=== PATIENT | male | born 1935 | race Caucasian/White ===

== ENCOUNTER 2017-01-18 11:59 | Inpatient (IN) | payer MEDICARE ==
[~2017-01-18] VITALS: Ht 185.4 cm; Wt 97.4 kg
[2017-01-18 12:01] VITALS: BP 144/74; PULSE 76; RESP 24; TEMP 97.4; O2SAT 95
--- NOTE | 2017-01-18 12:06 | PD ---
Data Data Last Documented VS Vital Signs Date Time Temp Pulse Resp B/P Pulse Ox O2 Delivery O2 Flow Rate FiO2 01/18/17 12:01 97.4 76 24 144/74 95 Room Air [facility] Supervised Visit with ALFIE: No Narrative Course 82 YO male with complaint of swelling in the right groin x 2 weeks. ? fevers. Cystoscopy with sanchez catheter placed in office today. Sent for admission by Anh/ Shantanu. Vitals reviewed. Awaiting bed placement. Sarahi Haas Jan 18, 2017 12:06
[2017-01-18 12:59] VITALS: BP 147/66; PULSE 76; RESP 20; TEMP 97.7; O2SAT 97
--- NOTE | 2017-01-18 13:48 | PD ---
HPI Chief Complaint: Complaint Time Seen by Provider: 13:00 Travel History International Travel<30 days: No Contact w/Intl Traveler<30days: No Traveled to known affect area: No History of Present Illness HPI This is an 82-year-old male who presents to the emergency department having had a Torres catheter put in via cystoscopy earlier today by Dr. Verdin also reporting scrotal swelling. Over the past week he's had increasing swelling of his right scrotum, constant, moderate severity with no associated fevers. Patient has a history of radiation for prostate cancer and has had a complicated urologic history since then. He had a suprapubic catheter which was leaking. Dr. Verdin saw him today and was concerned regarding the appearance of his scrotum and recommended that he be admitted for antibiotics. PFSH Past Medical History Cancer: Yes (hx of prostate cancer) Cardiovascular Problems: Yes (BYPASS 2002) High Cholesterol: Yes Deep Vein Thrombosis: Yes GERD: Yes Hypertension: Yes Radiation Therapy: Yes (after prostatectomy 2013) Influenza Vaccination: Yes Past Surgical History Cardiac Surgery: Yes (2002) Coronary Stent: Yes (2000) Eye Surgery: Yes (cataracts) Genitourinary Surgery: Yes (ams 800 inserted, ams removed, prostatectomy) Social History Alcohol Use: Yes (wine occasional) Tobacco Use: No Substance Use: No Allergies-Medications (Allergen,Severity, Reaction): Coded Allergies: Allopurinol (Verified Allergy, Severe, 01/18/17) ruined small instetine and esophagus Reported Meds & Prescriptions Reported Meds & Active Scripts Active Reported Zolpidem (Zolpidem Tartrate) 5 Mg Tab 5 Mg PO HS PRN Lipitor (Atorvastatin Calcium) 40 Mg Tab 40 Mg PO HS Omeprazole 20 Mg Tab 20 Mg PO DAILY Bactrim DS (Sulfamethoxazole-Trimethoprim) 800-160 Mg Tab 1 Tab PO BID Metoprolol Succinate ER 24 HR (Metoprolol Succinate) 100 Mg Tab 150 Mg PO DAILY Review of Systems Except as stated in HPI: all other systems reviewed are Neg Physical Exam Narrative GENERAL: Frail elderly male in no acute distress SKIN: Erythema and warmth of the right groin extending down to the right testicle HEAD: Atraumatic. Normocephalic. EYES: Pupils equal and round. No injection or drainage. ENT: Moist mucous membranes NECK: Trachea midline. CARDIOVASCULAR: Regular rate and rhythm. No murmur appreciated. RESPIRATORY: Clear to auscultation. Breath sounds equal bilaterally. GASTROINTESTINAL: Abdomen soft, non-tender, nondistended. : Erythema and fullness of the right groin area extending down into the scrotum with tenseness of the right scrotum, left scrotum is soft MUSCULOSKELETAL: No obvious deformities. NEUROLOGICAL: Awake and alert. No obvious cranial nerve deficits. Moving all extremities. PSYCHIATRIC: Appropriate mood and affect; insight and judgment normal. Data Data Last Documented VS Vital Signs Date Time Temp Pulse Resp B/P Pulse Ox O2 Delivery O2 Flow Rate FiO2 01/18/17 12:59 97.7 76 20 147/66 97 01/18/17 12:01 Room Air Orders Complete Blood Count With Diff (01/18/17 13:00) Comprehensive Metabolic Panel (01/18/17 13:00) Urinalysis - C+S If Indicated (01/18/17 13:00) ^ Insert Iv (01/18/17 13:00) Urine Culture (01/18/17 13:20) Lactic Acid (01/18/17 14:25) Sodium Chlor 0.9% 1000 Ml Inj (Ns 1000 M (01/18/17 14:30) Vancomycin Inj (Vancomycin Inj) (01/18/17 14:30) Cefepime Inj (Maxipime Inj) (01/18/17 14:30) Ct Abd/Pel W Iv Contrast(Rout) (01/18/17 ) Admit Order (Ed Use Only) (01/18/17 15:05) Labs Laboratory Tests Test 01/18/17 01/18/17 13:20 14:55 White Blood Count 14.6 TH/MM3 Red Blood Count 4.68 MIL/MM3 Hemoglobin 13.7 GM/DL Hematocrit 41.2 % Mean Corpuscular Volume 87.9 FL Mean Corpuscular Hemoglobin 29.3 PG Mean Corpuscular Hemoglobin 33.4 % Concent Red Cell Distribution Width 14.7 % Platelet Count 357 TH/MM3 Mean Platelet Volume 6.9 FL Neutrophils (%) (Auto) 74.2 % Lymphocytes (%) (Auto) 11.5 % Monocytes (%) (Auto) 13.1 % Eosinophils (%) (Auto) 0.6 % Basophils (%) (Auto) 0.6 % Neutrophils # (Auto) 10.9 TH/MM3 Lymphocytes # (Auto) 1.7 TH/MM3 Monocytes # (Auto) 1.9 TH/MM3 Eosinophils # (Auto) 0.1 TH/MM3 Basophils # (Auto) 0.1 TH/MM3 CBC Comment DIFF FINAL Differential Comment Urine Color YELLOW Urine Turbidity CLOUDY Urine pH 6.0 Urine Specific [place] 1.028 Urine Protein 300 mg/dL Urine Glucose (UA) NEG mg/dL Urine Ketones NEG mg/dL Urine Occult Blood LARGE Urine Nitrite POS Urine Bilirubin NEG Urine Urobilinogen LESS THAN 2.0 MG/DL Urine Leukocyte Esterase LARGE Urine RBC /hpf Urine WBC /hpf Urine Squamous Epithelial 1 /hpf Cells Urine Uric Acid Crystals OCC /hpf Urine Amorphous Sediment RARE Urine Bacteria MANY /hpf Urine Mucus MANY /lpf Urine Yeast with Hyphae FEW Urine Yeast (Budding) MANY Microscopic Urinalysis Comment CATH-CULTURE IND Sodium Level 132 MEQ/L Potassium Level 4.0 MEQ/L Chloride Level 98 MEQ/L Carbon Dioxide Level 27.0 MEQ/L Anion Gap 7 MEQ/L Blood Urea Nitrogen 16 MG/DL Creatinine 1.22 MG/DL Estimat Glomerular Filtration 57 ML/MIN Rate Random Glucose 124 MG/DL Calcium Level 9.3 MG/DL Total Bilirubin 0.5 MG/DL Aspartate Amino Transf 32 U/L (AST/SGOT) Alanine Aminotransferase 66 U/L (ALT/SGPT) Alkaline Phosphatase 185 U/L Total Protein 7.6 GM/DL Albumin 3.0 GM/DL Lactic Acid Level 1.2 mmol/L [facility] Medical Decision Making Medical Screen Exam Complete: Yes Emergency Medical Condition: Yes Interpretation(s) Afebrile, no tachycardia, hypertensive Leukocytosis with 74% neutrophils Electrolytes are reassuring Lactic acid is 1.2 Urinalysis demonstrates urinary tract infection but he is likely chronically colonized Differential Diagnosis Abscess, hematoma, sepsis, inguinal hernia Narrative Course This is an 82-year-old male who presents to the emergency department with increasing swelling and pain over an area where he previously had a urinary syncope or prosthesis. He was placed on a monitor and an IV was established. He is found to have a leukocytosis. He was given a dose of vancomycin and cefepime. CT of the abdomen and pelvis was obtained and it is consistent with a likely scrotal abscess. I spoke to Dr. Kamara who would like to maintain the patient on IV antibiotics as well as surgical intervention will likely be complicated and will require the OR for hardware removal. Patient will be admitted to the hospital for further management. Diagnosis Primary Impression: Scrotal abscess Admitting Information Admitting Physician Requests: Admit Haylee Franks MD Jan 18, 2017 13:48
[2017-01-18 13:56] LABS: AUTOMATED NEUTROPHIL # 10.9 TH/MM3 (1.8-7.7); BASOPHIL # 0.1 TH/MM3 (0-0.2); BASOPHIL % 0.6 % (0.0-2.0); EOSINOPHIL # 0.1 TH/MM3 (0-0.4); EOSINOPHIL % 0.6 % (0.0-4.0); HEMATOCRIT 41.2 % (39.0-51.0); HEMO FLAGS DIFF FINAL; LYMPH % 11.5 % (9.0-44.0); LYMPHOCYTE # 1.7 TH/MM3 (1.0-4.8); MEAN CELL VOLUME 87.9 FL (80.0-100.0); MEAN CORPUSCULAR HEMOGLOBIN 29.3 PG (27.0-34.0); MEAN CORPUSCULAR HGB CONC 33.4 % (32.0-36.0); MONO % 13.1 % (0.0-8.0); NEUT % 74.2 % (16.0-70.0); PLATELET COUNT 357 TH/MM3 (150-450); RED BLOOD COUNT 4.68 MIL/MM3 (4.50-5.90); RED CELL DISTRIBUTION WIDTH 14.7 % (11.6-17.2); WHITE BLOOD COUNT 14.6 TH/MM3 (4.0-11.0)
[2017-01-18 14:08] LABS: BACTERIA, URINE MANY /hpf; BLOOD, URINE LARGE (NEG); GLUCOSE,URINE NEG (NEG); KETONE, URINE NEG (NEG); MUCUS URINE MANY /lpf (OCC); SQUAMOUS EPITHELIAL CELL URINE 1 /hpf (0-5); URIC ACID CRYSTALS, URINE OCC /hpf; URINE COLOR YELLOW (YELLW/STRAW)
[2017-01-18 14:10] LABS: COMMENT (UR) CATH-CULTURE IND; CULTURE IF INDICATED CATH CULTURE IND; NITRITE,URINE POS (NEG)
[2017-01-18 14:15] LABS: ANION GAP 7 MEQ/L (5-15); AST (GOT) 32 U/L (15-37); BLOOD UREA NITROGEN 16 MG/DL (7-18); CHLORIDE 98 MEQ/L (98-107); GLOMERULAR FILTRATION RATE 57 ML/MIN (>89); SODIUM (NA) 132 MEQ/L (136-145)
[2017-01-18 14:22] LABS: ALKALINE PHOSPHATASE 185 U/L (45-117); ALT (GPT) 66 U/L (12-78); TOTAL BILIRUBIN ADULT 0.5 MG/DL (0.2-1.0)
[2017-01-18] MEDS ORDERED: LIPI40TA PO (14:23)
[2017-01-18] MEDS ORDERED: BACT800T5 PO (14:23)
[2017-01-18] MEDS ORDERED: ZOLP5TAB3 PO (14:23)
[2017-01-18] MEDS ORDERED: METO100T9 PO (14:23)
[2017-01-18] MEDS ORDERED: OMEP20TA PO (14:23)
[2017-01-18] MEDS ORDERED: CEFEPIME INJ 2,000 MG in SODIUM CHLORIDE 0.9% INJ 100 ML IV ONE (14:30)
[2017-01-18] MEDS ORDERED: SODIUM CHLOR 0.9% 1000 ML INJ 1,000 ML IV ONE (14:30)
[2017-01-18] MEDS ORDERED: VANCOMYCIN INJ 1,400 MG in SODIUM CHLORID 0.9% 500 ML INJ 500 ML IV ONE (14:30)
--- NOTE | 2017-01-18 14:51 | HHI.HP ---
[facility] Service Family Medicine Primary Care Physician Sabino Muniz M.D. Admission Diagnosis Diagnoses: International Travel<30 Days: No Contact w/Intl Traveler<30days: No Known Affected Area: No History of Present Illness Mr. Cheng is a pleasant 82 y/o CM, presenting with increased scrotal swelling, redness and subjective fevers. He reports having a prostatectomy in 2013 for Prostate CA. Since this time having urinary retention and had recurrent prostate resection performed. A suprapubic catheter was placed in 2013 and is changed every month. In [address] Leyva, when AMS 800 (artificial sphincter) was placed. This worked for approximately 10 days, and then after that it was not working very well. He was still having urinary retention even with the device. On January 03, 2017 the device was removed. A week after this time his right testicle became red and swollen. On January 11 starting leaking urine from his scrotum. He is now having to wear depends underwear for leakage of urine for the past week. He reports subjective fevers last night. Has been taking Bactrim everyday since removal of the artificial sphincter. Today he went for a follow up visit with urology and they urged him to be evaluated in the ED given the increased redness swelling and possibility of abscess/hematoma. A Torres was placed at that visit. (Johnie Segal MD R2) Review of Systems Constitutional: COMPLAINS OF: Fever, Chills Eyes: DENIES: Eye pain Ears, nose, mouth, throat: COMPLAINS OF: Nasal discharge Respiratory: COMPLAINS OF: Cough, DENIES: Shortness of breath Cardiovascular: DENIES: Chest pain, Palpitations Gastrointestinal: COMPLAINS OF: Diarrhea (sticky glue), DENIES: Abdominal pain , Black stools, Bloody stools Genitourinary: COMPLAINS OF: Testicular Pain, Testicular Swelling Integumentary: COMPLAINS OF: Rash Neurologic: DENIES: Headache Psychiatric: COMPLAINS OF: Confusion (Johnie Segal MD R2) Past Family Social History Past Medical History [place] 2000 with stent, CABG in 2002 No DM HTN No strokes Prostate Cancer Deep vein thrombosis (Left leg and groin veins) Past Surgical History Right knee replacement CABG x 3 vessels Cardiac Stents TURP Prostate surgeries as above (Johnie Segal MD R2) Allergies: Coded Allergies: Allopurinol (Verified Allergy, Severe, 01/18/17) ruined small instetine and esophagus Family History Non contributory. Mom with CAD. Social History No etoh, tob, or drug use. 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 Moved to [facility] recently from [place]. (Johnie Segal MD R2) Physical Exam Vital Signs Vital Signs Date Time Temp Pulse Resp B/P Pulse Ox O2 Delivery O2 Flow Rate FiO2 01/18/17 12:59 97.7 76 20 147/66 97 01/18/17 12:01 97.4 76 24 144/74 95 Room Air Physical Exam GENERAL: Crying throughout exam, appears uncomfortable but in NAD. SKIN: scar over anterior chest HEAD: Atraumatic. EYES: Pupils equal round and reactive. ENT: Nose without bleeding, purulent drainage or septal hematoma. NECK: Trachea midline. CARDIOVASCULAR: Regular rate and rhythm without murmurs, gallops, or rubs. Distant heart sounds. RESPIRATORY: Clear to auscultation. GASTROINTESTINAL: TTP over lower quadrants. MUSCULOSKELETAL: Extremities without clubbing, cyanosis, or edema. No joint tenderness, effusion, or edema noted. No calf tenderness. Negative Homans sign bilaterally. NEUROLOGICAL: Awake and alert. Cranial nerves II through XII intact. Motor and sensory grossly within normal limits. Five out of 5 muscle strength in all muscle groups. Normal speech. GENITOURINARY: Suprapubic catheter with thick green/yellow discharge around catheter, Right testes enlarged approximately 8-10 cm round, indurated, not fluctuant, no crepitus. Erythema throughout scrotum. Torres catheter with yellow purulent discharge. Laboratory Laboratory Tests Test 01/18/17 13:20 White Blood Count 14.6 Red Blood Count 4.68 Hemoglobin 13.7 Hematocrit 41.2 Mean Corpuscular Volume 87.9 Mean Corpuscular Hemoglobin 29.3 Mean Corpuscular Hemoglobin 33.4 Concent Red Cell Distribution Width 14.7 Platelet Count 357 Mean Platelet Volume 6.9 Neutrophils (%) (Auto) 74.2 Lymphocytes (%) (Auto) 11.5 Monocytes (%) (Auto) 13.1 Eosinophils (%) (Auto) 0.6 Basophils (%) (Auto) 0.6 Neutrophils # (Auto) 10.9 Lymphocytes # (Auto) 1.7 Monocytes # (Auto) 1.9 Eosinophils # (Auto) 0.1 Basophils # (Auto) 0.1 CBC Comment DIFF FINAL Differential Comment Urine Color YELLOW Urine Turbidity CLOUDY Urine pH 6.0 Urine Specific [place] 1.028 Urine Protein 300 Urine Glucose (UA) NEG Urine Ketones NEG Urine Occult Blood LARGE Urine Nitrite POS Urine Bilirubin NEG Urine Urobilinogen LESS THAN 2.0 Urine Leukocyte Esterase LARGE Urine RBC Urine WBC Urine Squamous Epithelial 1 Cells Urine Uric Acid Crystals OCC Urine Amorphous Sediment RARE Urine Bacteria MANY Urine Mucus MANY Urine Yeast with Hyphae FEW Urine Yeast (Budding) MANY Microscopic Urinalysis Comment CATH-CULTURE IND Sodium Level 132 Potassium Level 4.0 Chloride Level 98 Carbon Dioxide Level 27.0 Anion Gap 7 Blood Urea Nitrogen 16 Creatinine 1.22 Estimat Glomerular Filtration 57 Rate Random Glucose 124 Calcium Level 9.3 Total Bilirubin 0.5 Aspartate Amino Transf 32 (AST/SGOT) Alanine Aminotransferase 66 (ALT/SGPT) Alkaline Phosphatase 185 Total Protein 7.6 Albumin 3.0 Date/Time Procedure Status Source Growth 01/18/17 13:20 Urine Culture Received Urine Catheterized Urine Pending (Johnie Segal MD R2) Result Diagram: 01/18/17 1320 01/18/17 1320 Imaging Last 72 hours Impressions Abdomen/Pelvis CT 01/18/17 0000 Signed Impressions: Service Date/Time: Wednesday, January 18, 2017 15:33 - CONCLUSION: 1. Presumed inflammatory process in and around the right scrotum that does not extend into the perineum. 2. There would be a small hernia sac present. There is induration extending along and into the inguinal canal. 3. Patient does have what looks like a catheter within the urethra that does not extend into the bladder. Geovanny Hopkins MD FACR (Johnie Segal MD R2) Septic Shock Reassessment Heart: Regular rate and rhythm Lungs: Clear Skin: Warm Peripheral Pulses: Bounding Right Radial Bounding Left Radial Capillary Refill: <2 seconds (Johnie Segal MD R2) Assessment and Plan Assessment and Plan Mr. Nolan is a 82-year-old male with a past medical history of coronary artery disease, prostate cancer status post resection in 2013, artificial urethral sphincter placement, urinary incontinence, and hypertension , presenting with increased scrotal swelling and redness x 2 weeks. He will be admitted for pain control and IV antibiotics. Code Status Full Code. (Johnie Segal MD R2) Attending Attestation The patient has been seen and examined. The chart and all resident notes have been reviewed. I agree that inpatient care is appropriate and that a two midnight stay is expected for the reasons documented in the resident history and physical. I have discussed this with the resident and certify the resident s order for inpatient admission. All systems reviewed and neg except as stated in HPI. (Toya Quan MD) Problem List: (1) Sepsis Status: Acute Plan: RR > 20, WBCs at 14.4 k, with suspected source = Urinary tract, scrotum. Lactic acid WNL. Treat with broad spectrum antibiotics: Zosyn 3.375 mg IV q 6 hrs, started 01/18 - Vancomycin 15 mg/kg q 12 hr (Vancomycin consult), started 01/18 - Received 1 L bolus in ED, continue NS at 100 ml/hr. Vitals at goal. Follow up urine and blood cultures. May consider infectious disease consult. (2) Swelling of scrotum Status: Acute Plan: CT abd/pelvis with contrast noted: "Presumed inflammatory process in and around the right scrotum that does not extend into the perineum. There would be a small hernia sac present. There is induration extending along and into the inguinal canal." Suspect scrotal cellulitis/abscess. Tess gangrene unlikely given physical exam and no extension of inflammatory process into the perineum on CT. Pain control with: Ketoralac 30 mg IV q 6 hr prn pain 1-5 Morphine 2 mg IV q q 4 hr prn pain 6-10 Hydromorphone 0.5 mg q 3 hr breakthrough pain Consult urology. We appreciate their assistance. (3) Hyperlipidemia Status: Acute Plan: Continue statin therapy. (4) CAD (coronary artery disease) Status: Acute Plan: BP control with home medications including Beta bev (Metoprolol 150 mg ER daily). Hold antiplatelet therapy given the possible need for surgical procedure. Lipid control as above. (5) Nutrition, metabolism, and development symptoms Status: Acute Plan: Nutrition: Nothing by mouth until evaluated by urology. Electrolytes: at goal except for sodium of 132, repeat BMP in am DVT ppx: SCDs given high risk of bleeding. wdw Dr. Quan (Johnie Segal MD R2) Physician Certification 2 Midnight Certification Type: Admission for Inpatient Services Order for Inpatient Services The services are ordered in accordance with Medicare regulations or non- Medicare payer requirements, as applicable. In the case of services not specified as inpatient-only, they are appropriately provided as inpatient services in accordance with the 2-midnight benchmark. Estimated LOS (days): 2 2 days is the estimated time the patient will need to remain in the hospital, assuming treatment plan goals are met and no additional complications. Post-Hospital Plan: Home (Johnie Segal MD R2) Johnie Segal MD R2 Jan 18, 2017 14:51 Toya Quan MD Jan 19, 2017 14:32
[2017-01-18] MEDS ORDERED: SODIUM CHLORIDE 0.9% FLUSH 10 ML FLUSH IV FLUSH PRN ×2 (15:30)
[2017-01-18] MEDS ORDERED: HYDROmorphone HCL PF 1 MG/ML VIAL IV PRN (15:30)
[2017-01-18] MEDS ORDERED: NALOXONE HCL 0.4 MG/ML AMP IV PRN (15:30)
[2017-01-18] MEDS ORDERED: MORPHINE SULFATE 4 MG/ML INJ IV PRN (15:30)
[2017-01-18] MEDS ORDERED: KETOROLAC TROMETHAMINE 30 MG/ML (IVP) VIAL IVP PRN (15:30)
[2017-01-18] MEDS ORDERED: ONDANSETRON HCL 4 MG/2 ML VIAL IVP PRN (15:30)
[2017-01-18] MEDS ORDERED: IOHEXOL 350 MG/ML 10 ML VIAL (for RAD DIAG) IV ONE (15:49)
[2017-01-18 15:50] VITALS: BP 163/72; PULSE 75; RESP 15; TEMP 98.2; O2SAT 98
--- NOTE | 2017-01-18 16:12 | RADRPT ---
EXAM DATE/TIME: 01/18/2017 15:33 [place] COMPARISON: No previous studies available for comparison. INDICATIONS : Scrotal pain for 2 weeks. IV CONTRAST: 93 cc Omnipaque 350 (iohexol) IV ORAL CONTRAST: No oral contrast ingested. RADIATION DOSE: 11.91 CTDIvol (mGy) MEDICAL HISTORY : Carcinoma, prostate. SURGICAL HISTORY : Prostatectomy. suprapubic cath. ENCOUNTER: Initial ACUITY: 2 weeks PAIN SCALE: 6/10 LOCATION: Right scrotum. TECHNIQUE: Volumetric scanning of the abdomen and pelvis was performed. Using automated exposure control and ad justment of the mA and/or kV according to patient size, radiation dose was kept as low as reasonably achievable to obtain optimal diagnostic quality images. FINDINGS: The lung bases are clear. There is no pericardial effusion. The liver is free of focal defects. Mu ltiple gallstones are present in a benign-appearing gallbladder. Spleen, pancreas and adrenal glands are unremarkable. There is symmetrical renal function. There is no ascites or adenopathy appreciated. In the pelvis, the region of the cecum and terminal ileum are unremarkable. There are diverticula in the sigmoid colon without diverticulitis. Patient does have a suprapubic ca theter in place. There is a large hydrocele about the right testicle. In addition, there is inguinal hernia present. I don't see any definite bowel in the hernia. Clinical correlation is suggested. There are minimal inflammatory changes around the scrotum, particularly on the right side suggesting possibly an orchitis or other inflammatory process. This does not extend into the perineum. CONCLUSION: 1. Presumed inflammatory process in and around the right scrotum that does not extend into the perin eum. 2. There would be a small hernia sac present. There is induration extending along and into the ingu inal canal. 3. Patient does have what looks like a catheter within the urethra that does not extend into the eric dder. Geovanny Hopkins MD FACR on January 18, 2017 at 15:56 Board Certified Radiologist. This report was verified electronically.
[2017-01-18] MEDS ORDERED: FUROSEMIDE 20 MG/2 ML VIAL IV ONE (16:15)
[2017-01-18 16:20] LABS: APTT (PATIENT) 30.6 SEC (24.3-30.1); INTERNATIONAL NORMALIZED RATIO 1.1 RATIO; PROTHROMBIN TIME - PATIENT 11.7 SEC (9.8-11.6)
[2017-01-18] MEDS: SODIUM CHLOR 0.9% 1000 ML INJ 1,000 ML IV SCH ×2 (16:44→21:26)
[2017-01-18] MEDS: DOCUSATE SODIUM 50 MG/SENNA 8.6 MG TAB PO SCH ×2 (16:44→21:21)
[2017-01-18] MEDS ORDERED: Vancomycin Consult Pharmacy 1 EA OTHER SCH (16:45)
[2017-01-18 17:20] VITALS: BP 167/76; PULSE 75; RESP 20; TEMP 98.5; O2SAT 96
[2017-01-18] MEDS: PIPERACIL-TAZO 3.375 GM PREMIX 50 ML IV SCH ×2 (18:31→23:07)
[2017-01-18] MEDS ORDERED: cloNIDine HCL 0.1 MG TAB PO PRN (19:30)
[2017-01-18] MEDS ORDERED: MORPHINE SULFATE 4 MG/ML INJ IV PUSH PRN (20:00)
[2017-01-18 20:01] VITALS: PULSE 70
[2017-01-18 20:02] VITALS: BP 138/63; PULSE 68; RESP 20; TEMP 98.7; O2SAT 96
[2017-01-18] MEDS ORDERED: SODIUM CHLORIDE 0.9% FLUSH 10 ML FLUSH IV FLUSH SCH (21:00)
--- NOTE | 2017-01-18 21:18 | PD.CONS ---
HPI Service Urology Consult Requested By Reason for Consult Infection Primary Care Physician Sabino Muniz M.D. Diagnosis: History of Present Illness 82yo male with history of prostate cancer who had an AUS placed that was subsequently removed last month now with increased erythema and swelling noted in the right testicle and hemiscrotum and groin. Patient was seen in clinic this morning where a sanchez catheter was successfully placed. An SPT had been placed prior, but did not appear to be adequately draining. Currently both catheter are in place draining clear urine. Patient is resting comfortably and reports some mild right groin pain. No fevers. CT scan showed large fluid collection in the right groin, concerning for abscess vs hematoma vs urinoma. Review of Systems ROS Limitations: Clinical Condition Constitutional: DENIES: Fever Endocrine: DENIES: Polyuria Eyes: DENIES: Blurred vision Ears, nose, mouth, throat: DENIES: Hearing loss Respiratory: DENIES: Cough Cardiovascular: DENIES: Chest pain Gastrointestinal: COMPLAINS OF: Abdominal pain, DENIES: Nausea, Vomiting Genitourinary: COMPLAINS OF: Urinary incontinence, DENIES: Hematuria Musculoskeletal: DENIES: Joint pain Integumentary: DENIES: Rash Neurologic: DENIES: Headache Psychiatric: DENIES: Anxiety Except as stated in HPI: all other systems reviewed are Neg Past Family Social History Past Medical History [place] 2000 with stent, CABG in 2002 No DM HTN No strokes Prostate Cancer Deep vein thrombosis (Left leg and groin veins) Past Surgical History Right knee replacement CABG x 3 vessels Cardiac Stents TURP Prostate surgeries as above Reported Medications Reported Meds & Active Scripts Active Reported Zolpidem (Zolpidem Tartrate) 5 Mg Tab 5 Mg PO HS PRN Lipitor (Atorvastatin Calcium) 40 Mg Tab 40 Mg PO HS Omeprazole 20 Mg Tab 20 Mg PO DAILY Bactrim DS (Sulfamethoxazole-Trimethoprim) 800-160 Mg Tab 1 Tab PO BID Metoprolol Succinate ER 24 HR (Metoprolol Succinate) 100 Mg Tab 150 Mg PO DAILY Allergies: Coded Allergies: Allopurinol (Verified Allergy, Severe, 01/18/17) ruined small instetine and esophagus Active Ordered Medications Current Medications Medications (Trade) Dose Ordered Sig/Kena Route Start Time Stop Time Status Last Admin (Lipitor) 40 mg HS PO 01/18/17 21:00 Metoprolol Succinate 150 mg 150 mg DAILY PO 01/19/17 09:00 (NS 1000 ml Inj) 1,000 ml @ 100 mls/hr Q10H IV 01/18/17 16:00 01/18/17 16:44 (Zofran Inj) 4 mg Q6H PRN IVP 01/18/17 15:30 (Narcan Inj) 0.4 mg UNSCH PRN IV 01/18/17 15:30 (Rufina-Colace) 1 tab BID PO 01/18/17 15:30 01/18/17 16:44 (NS Flush) 2 ml UNSCH PRN IV FLUSH 01/18/17 15:30 (NS Flush) 2 ml BID IV FLUSH 01/18/17 21:00 (Toradol Inj) 30 mg Q6H PRN IVP 01/18/17 15:30 (Dilaudid Pf Inj) 0.5 mg Q3H PRN IV 01/18/17 15:30 Psyllium Hydrophilic Mucilloid 1 pkt 1 pkt DAILY PO 01/19/17 09:00 Piperacillin Sod/ Tazobactam Sod 50 ml @ 100 mls/hr Q6H IV 01/18/17 17:00 01/18/17 18:31 (Vancomycin Consult Pharmacy) 0 ml @ 0 mls/hr UNSCH OTHER 01/18/17 16:45 (Catapres) 0.1 mg Q6H PRN PO 01/18/17 19:30 (Morphine Inj) 2 mg Q3H PRN IV PUSH 01/18/17 20:00 Family History Reviewed and Non contributory to present illness Mom with CAD. Social History No etoh, tob, or drug use. 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 Moved to [facility] recently from [place]. Physical Exam Vital Signs Date Time Temp Pulse Resp B/P Pulse Ox O2 Delivery O2 Flow Rate FiO2 01/18/17 20:02 98.7 68 20 138/63 96 01/18/17 17:20 98.5 75 20 167/76 96 01/18/17 15:50 98.2 75 15 163/72 98 Room Air 01/18/17 12:59 97.7 76 20 147/66 97 01/18/17 12:01 97.4 76 24 144/74 95 Room Air Physical Exam GENERAL: This is a well-nourished, well-developed patient, in no apparent distress. SKIN: No rashes, ecchymoses or lesions. Cool and dry. HEAD: Atraumatic. Normocephalic. EYES: Extraocular motions intact. No scleral icterus. ENT: Nose without bleeding, purulent drainage. Airway patent. NECK: Trachea midline. CARDIOVASCULAR: Normal pulses. well perfused. RESPIRATORY: Nonlabored respirations, equal chest rise GASTROINTESTINAL: Abdomen soft, non-tender, nondistended. SPT in place draining clear yellow urine GENITOURINARY: Significant erythema and swelling noted in the right groin and scrotum. Tender to palpation. Urethral catheter in place, draining clear yellow urine. MUSCULOSKELETAL: Extremities without clubbing, cyanosis, or edema. NEUROLOGICAL: Awake and alert. Motor and sensory grossly within normal limits. Normal speech. Lab results reviewed: Yes Laboratory Tests Test 01/18/17 01/18/17 01/18/17 13:20 14:55 15:50 White Blood Count 14.6 Red Blood Count 4.68 Hemoglobin 13.7 Hematocrit 41.2 Mean Corpuscular Volume 87.9 Mean Corpuscular Hemoglobin 29.3 Mean Corpuscular Hemoglobin 33.4 Concent Red Cell Distribution Width 14.7 Platelet Count 357 Mean Platelet Volume 6.9 Neutrophils (%) (Auto) 74.2 Lymphocytes (%) (Auto) 11.5 Monocytes (%) (Auto) 13.1 Eosinophils (%) (Auto) 0.6 Basophils (%) (Auto) 0.6 Neutrophils # (Auto) 10.9 Lymphocytes # (Auto) 1.7 Monocytes # (Auto) 1.9 Eosinophils # (Auto) 0.1 Basophils # (Auto) 0.1 CBC Comment DIFF FINAL Differential Comment Urine Color YELLOW Urine Turbidity CLOUDY Urine pH 6.0 Urine Specific [place] 1.028 Urine Protein 300 Urine Glucose (UA) NEG Urine Ketones NEG Urine Occult Blood LARGE Urine Nitrite POS Urine Bilirubin NEG Urine Urobilinogen LESS THAN 2.0 Urine Leukocyte Esterase LARGE Urine RBC Urine WBC Urine Squamous Epithelial 1 Cells Urine Uric Acid Crystals OCC Urine Amorphous Sediment RARE Urine Bacteria MANY Urine Mucus MANY Urine Yeast with Hyphae FEW Urine Yeast (Budding) MANY Microscopic Urinalysis Comment CATH-CULTURE IND Sodium Level 132 Potassium Level 4.0 Chloride Level 98 Carbon Dioxide Level 27.0 Anion Gap 7 Blood Urea Nitrogen 16 Creatinine 1.22 Estimat Glomerular Filtration 57 Rate Random Glucose 124 Calcium Level 9.3 Total Bilirubin 0.5 Aspartate Amino Transf 32 (AST/SGOT) Alanine Aminotransferase 66 (ALT/SGPT) Alkaline Phosphatase 185 Total Protein 7.6 Albumin 3.0 Lactic Acid Level 1.2 Prothrombin Time 11.7 Prothromb Time International 1.1 Ratio Activated Partial 30.6 Thromboplast Time Date/Time Procedure Status Source Growth 01/18/17 15:55 Aerobic Blood Culture Received Blood Arterial Line Pending 01/18/17 15:55 Anaerobic Blood Culture Received Blood Arterial Line Pending 01/18/17 13:20 Urine Culture Received Urine Catheterized Urine Pending Result Diagram: 01/18/17 1320 01/18/17 1320 Personally reviewed images: Yes Imaging Last Impressions Abdomen/Pelvis CT 01/18/17 0000 Signed Impressions: Service Date/Time: Wednesday, January 18, 2017 15:33 - CONCLUSION: 1. Presumed inflammatory process in and around the right scrotum that does not extend into the perineum. 2. There would be a small hernia sac present. There is induration extending along and into the inguinal canal. 3. Patient does have what looks like a catheter within the urethra that does not extend into the bladder. Geovanny Hopkins MD FACR Assessment and Plan Problem List: (1) Swelling of scrotum ICD Code: N50.89 Status: Acute Assessment and Plan -Continue broad spectrum antibiotics -Will continue to follow WBC -Consider Scrotal U/S to assess testicle -Regular diet, no planned surgery at this time. However he may need I&D/ debridement if condition worsens or does not improve -Will follow. Please call with questions Kang Kamara MD Jan 18, 2017 21:18
[2017-01-18] MEDS: SODIUM CHLORIDE 0.9% FLUSH 10 ML FLUSH IV FLUSH SCH (21:21)
[2017-01-18] MEDS: ATORVASTATIN 40 MG TAB PO SCH (21:21)
[2017-01-19] VITALS (8 sets, daily range): BP systolic 114–143; BP diastolic 58–65; PULSE 60–72; RESP 18–20; TEMP 98.1–98.9; O2SAT 95–96
[2017-01-19] MEDS ORDERED: VANCOMYCIN INJ 1,400 MG in SODIUM CHLORID 0.9% 500 ML INJ 500 ML IV SCH (02:30)
[2017-01-19] MEDS: PIPERACIL-TAZO 3.375 GM PREMIX 50 ML IV SCH ×4 (05:38→23:35)
[2017-01-19] MEDS: SODIUM CHLORIDE 0.9% FLUSH 10 ML FLUSH IV FLUSH SCH ×2 (08:39→20:12)
[2017-01-19] MEDS: DOCUSATE SODIUM 50 MG/SENNA 8.6 MG TAB PO SCH ×2 (08:39→20:24)
[2017-01-19] MEDS: METOPROLOL SUCCINATE 50 MG EXTENDED RELEASE TAB PO SCH (08:39)
[2017-01-19] MEDS: PSYLLIUM FIBER SF/GF 6 GM POWD PKT PO SCH (08:42)
[2017-01-19] MEDS ORDERED: DIPHTH/TETANUS/ACEL PERTUSSIS (BOOSTER) 0.5 ML VIAL/PFS IM ONE (09:00)
[2017-01-19 09:25] LABS: AUTOMATED NEUTROPHIL # 7.7 TH/MM3 (1.8-7.7); BASOPHIL # 0.1 TH/MM3 (0-0.2); BASOPHIL % 0.6 % (0.0-2.0); EOSINOPHIL # 0.1 TH/MM3 (0-0.4); EOSINOPHIL % 1.2 % (0.0-4.0); HEMATOCRIT 36.5 % (39.0-51.0); HEMO FLAGS DIFF FINAL; LYMPH % 14.4 % (9.0-44.0); LYMPHOCYTE # 1.6 TH/MM3 (1.0-4.8); MEAN CORPUSCULAR HEMOGLOBIN 28.3 PG (27.0-34.0); MEAN CORPUSCULAR HGB CONC 31.8 % (32.0-36.0); MONO % 15.5 % (0.0-8.0); NEUT % 68.3 % (16.0-70.0); PLATELET COUNT 308 TH/MM3 (150-450); RED BLOOD COUNT 4.11 MIL/MM3 (4.50-5.90); RED CELL DISTRIBUTION WIDTH 14.6 % (11.6-17.2); WHITE BLOOD COUNT 11.2 TH/MM3 (4.0-11.0)
[2017-01-19 09:45] LABS: BICARBONATE 22.6 MEQ/L (21.0-32.0); POTASSIUM 3.8 MEQ/L (3.5-5.1)
[2017-01-19] MEDS: SODIUM CHLOR 0.9% 1000 ML INJ 1,000 ML IV SCH ×2 (10:28→22:00)
--- NOTE | 2017-01-19 11:37 | RADRPT ---
EXAM DATE/TIME: 01/19/2017 09:28 [facility] COMPARISON: CT ABDOMEN & PELVIS W CONTRAST, January 18, 2017, 15:33. INDICATIONS : Enlarged right testicle. MEDICAL HISTORY : Carcinoma, prostate. Hypercholesterolemia. DVT. Abdominal pain. GERD. HTN. SURGICAL HISTORY : CABG Coronary artery stent.Cataracts. AMS 800 inserted and removed. Prostatectomy. Left knee. Radiati on therapy. ENCOUNTER: Initial ACUITY: 1 month PAIN SCORE: 7/10 LOCATION: Bilateral scrotum. MEASUREMENTS: RIGHT TESTICLE: 3.4 x 2.9 x 2.9cm LEFT TESTICLE: 4.2 x 2.8 x 2.1cm FINDINGS: RIGHT TESTICLE: There is no flow in the right testicle. Extensive debris is present in the scrotum with marked thick ening of the scrotal sac. There may be small inguinal component of this as well. LEFT TESTICLE: Homogeneous echotexture without intra or extratesticular mass. Blood flow is symmetric and within no rmal limits. No hydrocele or varicocele. Epididymis is within normal limits. SCROTUM: Within normal limits. CONCLUSION: There is no blood flow in the right testicle. Extensive debris and scrotal thickening are present [facility] sp[facility] for an abscess as questioned by CT. There is normal flow to left testicle. Geovanny Hopkins MD FACR on January 19, 2017 at 11:33 Board Certified Radiologist. This report was verified electronically.
--- NOTE | 2017-01-19 11:50 | RADRPT ---
EXAM DATE/TIME: 01/19/2017 11:00 [facility] COMPARISON: No previous studies available for comparison. INDICATIONS : Right sided chest discomfort. Fall three weeks ago. Pain since then. MEDICAL HISTORY : Hypertension. Hypercholesterolemia. Gastroesophageal reflux disease. Prosta te cancer. SURGICAL HISTORY : CABG. Coronary stent. ENCOUNTER: Initial ACUITY: 3 weeks PAIN SCORE: 3/10 LOCATION: Right chest. FINDINGS: Sternal wires from previous median sternotomy are noted. Heart and pulmonary vascularity are normal. Portion of bony skeleton visualized is unremarkable. CONCLUSION: Negative chest for acute disease. Geovanny Hopkins MD FACR on January 19, 2017 at 11:44 Board Certified Radiologist. This report was verified electronically.
--- NOTE | 2017-01-19 14:32 | HHI.FPPN ---
Subjective Subjective Patient seen and examined with the resident team. Case reviewed and discussed Please refer to resident H&P for further details regarding HPI, ROS, PMH, SurgHx , FH and SocHx In summary, patient is an 82yoM with a history of prostate CA s/p prostatectomy with subsequent urinary incontinence. He underwent artificial urethral sphincter placement with removal about 2 weeks ago and since that time has noted worsening erythema and edema and pain over the R scrotum. Patient presented to the ED with worsening of the above noted symptoms. He is seen in his hospital bed reporting some improvement in his symptoms since initiation of antibiotic therapy Hospital Objective Objective Last Impressions Scrotum Ultrasound 01/19/17 1000 Signed Impressions: Service Date/Time: Thursday, January 19, 2017 09:28 - CONCLUSION: There is no blood flow in the right testicle. Extensive debris and scrotal thickening are present suspicious for an abscess as questioned by CT. There is normal flow to left testicle. Geovanny Hopkins MD FACR Chest X-Ray 01/19/17 0000 Signed Impressions: Service Date/Time: Thursday, January 19, 2017 11:00 - CONCLUSION: Negative chest for acute disease. Geovanny Hopkins MD FACR Abdomen/Pelvis CT 01/18/17 0000 Signed Impressions: Service Date/Time: Wednesday, January 18, 2017 15:33 - CONCLUSION: 1. Presumed inflammatory process in and around the right scrotum that does not extend into the perineum. 2. There would be a small hernia sac present. There is induration extending along and into the inguinal canal. 3. Patient does have what looks like a catheter within the urethra that does not extend into the bladder. Geovanny Hopkins MD FACR Laboratory Tests - Abnormals Test 01/18/17 01/19/17 15:50 06:04 Prothrombin Time 11.7 SEC Activated Partial 30.6 SEC Thromboplast Time White Blood Count 11.2 TH/MM3 Red Blood Count 4.11 MIL/MM3 Hemoglobin 11.6 GM/DL Hematocrit 36.5 % Mean Corpuscular Hemoglobin 31.8 % Concent Monocytes (%) (Auto) 15.5 % Monocytes # (Auto) 1.7 TH/MM3 Sodium Level 135 MEQ/L Estimat Glomerular Filtration 65 ML/MIN Rate Calcium Level 8.4 MG/DL Vital Signs 01/18/17 01/18/17 01/18/17 6/9/17 15:50 17:20 20:01 20:02 Temp 98.2 98.5 98.7 Pulse 75 75 70 68 Resp 15 20 20 B/P 163/72 167/76 138/63 Pulse Ox 98 96 96 O2 Delivery Room Air 01/19/17 01/19/17 01/19/17 01/19/17 00:00 04:31 08:30 08:30 Temp 98.2 98.2 98.1 Pulse 72 72 67 60 Resp 18 20 19 B/P 140/63 140/63 117/58 Pulse Ox 96 96 95 01/19/17 01/19/17 10:23 12:00 Temp 98.5 Pulse 66 Resp 18 B/P 114/59 Pulse Ox 95 96 FiO2 21 INTAKE & OUTPUT 01/19/17 07:00 Output Total 900 ml Balance -900 ml Physical exam GENERAL: wdwn male, resting in bed SKIN: Warm and dry. There is extensive erythema and induration and edema of the R scrotum. There is mild purulent drainage from the scrotum as well as purulent drainage from the suprapubic cath site. Healing incision suprapubically with sanguinous drainage, no pus. No palpable crepitus. HEAD: Normocephalic. AT EYES: No scleral icterus. No injection or drainage. ENT: OP Clear. MMM NECK: Supple, trachea midline. No JVD or lymphadenopathy. CARDIOVASCULAR: Regular rate and rhythm without murmurs, gallops, or rubs. RESPIRATORY: Breath sounds equal and clear bilaterally. No accessory muscle use. GASTROINTESTINAL: Abdomen soft, non-tender, nondistended. Skin as noted above. Normal active BS MUSCULOSKELETAL: No cyanosis, or edema. NO calf tenderness BACK: Nontender without obvious deformity. No CVA tenderness. NEURO: Awake and alert. Normal speech. CN grossly intact Assessment Assessment 82yoM admitted with: Scrotal cellulitis and edema Sepsis Leukocytosis UTI with suprapubic cath Hyponatremia Failed outpatient therapy with Bactrim Hx Prostate CA [place] 2000 with stent, CABG in 2002 HTN Deep vein thrombosis PLAN PLAN Blood cultures Urine culture Wound cultures, scrotum, suprapubic cath Empiric antibiotic therapy ID consult, spoke with Dr. Infante, appreciate recs on antibiotics Urology consulted, Dr. Lawindy following Follow culture results Resume home meds as appropriate IVF Results of CT and ultrasound noted. Resident to contact urology regarding new u/s result. Heparin fo DVT proph Patient seen and examined. Case reviewed and discussed Agree with plan of care as discussed with me and documented in the resident note. Toya Quan MD Jan 19, 2017 14:31
[2017-01-19] MEDS: VANCOMYCIN INJ 1,750 MG in SODIUM CHLORID 0.9% 500 ML INJ 500 ML IV SCH (15:00)
[2017-01-19] MEDS: HEPARIN SODIUM - SQ 10,000 UNITS/ML VIAL SQ SCH ×2 (15:15→20:24)
--- NOTE | 2017-01-19 16:33 | HHI.PR ---
Subjective Patient symptoms today Patient feels better today. Pain improved. No fevers. WBC improved. Patient is comfortable and reports no pain if his right scrotum/testicle is not touched. Objective Vital Signs Vital Signs Date Time Temp Pulse Resp B/P Pulse Ox O2 Delivery O2 Flow Rate FiO2 01/19/17 16:00 98.4 66 18 140/63 96 01/19/17 12:00 98.5 66 18 114/59 96 01/19/17 10:23 95 21 01/19/17 08:30 60 01/19/17 08:30 98.1 67 19 117/58 95 01/19/17 04:31 98.2 72 20 140/63 96 01/19/17 00:00 98.2 72 18 140/63 96 01/18/17 20:02 98.7 68 20 138/63 96 01/18/17 20:01 70 01/18/17 17:20 98.5 75 20 167/76 96 Intake & Output 01/19/17 01/19/17 07:00 19:00 Intake Total 480 ml Output Total 900 ml 700 ml Balance -900 ml -220 ml Intake Oral 480 ml Output Urine Total 900 ml 700 ml Result Diagram: 01/19/17 0604 01/19/17 0604 Imaging Last 24 hours Impressions Scrotum Ultrasound 01/19/17 1000 Signed Impressions: Service Date/Time: Thursday, January 19, 2017 09:28 - CONCLUSION: There is no blood flow in the right testicle. Extensive debris and scrotal thickening are present suspicious for an abscess as questioned by CT. There is normal flow to left testicle. Geovanny Hopkins MD FACR Chest X-Ray 01/19/17 0000 Signed Impressions: Service Date/Time: Thursday, January 19, 2017 11:00 - CONCLUSION: Negative chest for acute disease. Geovanny Hopkins MD FACR Objective Remarks Right hemiscrotum swollen and tender with erythema, however does appear improved from yesterday exam Normal left testis SPT and Torres in place, bother draining clear yellow urine Medications and IVs Current Medications Medications (Trade) Dose Ordered Sig/Kena Route Start Time Stop Time Status Last Admin (Lipitor) 40 mg HS PO 01/18/17 21:00 01/18/17 21:21 Metoprolol Succinate 150 mg 150 mg DAILY PO 01/19/17 09:00 01/19/17 08:39 (NS 1000 ml Inj) 1,000 ml @ 100 mls/hr Q10H IV 01/18/17 16:00 01/19/17 10:28 (Zofran Inj) 4 mg Q6H PRN IVP 01/18/17 15:30 (Narcan Inj) 0.4 mg UNSCH PRN IV 01/18/17 15:30 (Rufina-Colace) 1 tab BID PO 01/18/17 15:30 01/19/17 08:39 (NS Flush) 2 ml UNSCH PRN IV FLUSH 01/18/17 15:30 01/18/17 23:15 (NS Flush) 2 ml BID IV FLUSH 01/18/17 21:00 01/19/17 08:39 (Toradol Inj) 30 mg Q6H PRN IVP 01/18/17 15:30 01/18/17 23:15 (Dilaudid Pf Inj) 0.5 mg Q3H PRN IV 01/18/17 15:30 Psyllium Hydrophilic Mucilloid 1 pkt 1 pkt DAILY PO 01/19/17 09:00 Piperacillin Sod/ Tazobactam Sod 50 ml @ 100 mls/hr Q6H IV 01/18/17 17:00 01/19/17 16:19 (Vancomycin Consult Pharmacy) 0 ml @ 0 mls/hr UNSCH OTHER 01/18/17 16:45 (Catapres) 0.1 mg Q6H PRN PO 01/18/17 19:30 Morphine Sulfate 2 mg 2 mg Q3H PRN IV PUSH 01/18/17 20:00 (Vancomycin Inj/ NS 500 ml Inj) 517.5 ml @ 258.75 mls/ hr Q24H IV 01/19/17 15:00 01/19/17 15:00 Miscellaneous Information SPECIFIC LAB TO BE MERCED... ONCE ONCE .XX 01/22/17 14:45 01/22/17 14:46 (Heparin Inj) 5,000 units Q8HR SQ 01/19/17 15:15 01/19/17 15:15 Assessment and Plan Problem List: (1) Swelling of scrotum ICD Code: N50.89 Status: Acute Assessment and Plan -Evidence of right testicular ischemia on scrotal ultrasound -Upon further discussion with the patient, this appears to have been an ongoing process for at least several days -We discussed the findings in detail and the treatment of right scrotal exploration and debridement with right orchiectomy. The likelihood of salvaging the right testis with a prolonged ischemia time is practically zero. Patient understands this and would like the right testis removed -As patient is comfortable and has eaten lunch at 2pm, we will plan for surgery tomorrow morning with Scrotal Exploration and debridement with right orchiectomy -NPO at midnight Kang Kamara MD Jan 19, 2017 16:33
--- NOTE | 2017-01-19 17:42 | MB ---
cc: CULLEN MERCADO MD DATE OF CONSULTATION 01/19/[address] Lopes REASON FOR CONSULTATION Scrotal abscess. Failed Bactrim. HISTORY OF PRESENT ILLNESS This is an 82-year-old white male who presented to the emergency department yesterday. The patient developed swelling of his right scrotum and redness along with subjective fevers. He has a history of prostatectomy in 2013 for prostate cancer. He was also having urinary retention and recurrent prostate resection was performed and he had a suprapubic catheter placed. The patient had placement of an artificial urethral sphincter which failed to work properly and therefore it was removed on January 03. He subsequently developed redness and swelling of the right testicle and he was also having leakage of urine from the scrotum. He was put on Bactrim after removal of the device. He developed increased swelling and therefore presented to the emergency department for evaluation. The scrotum ultrasound was performed and it shows extensive debris and scrotal thickening suspicious for an abscess. CT scan had revealed induration extending along and into the inguinal canal. The urine culture has been sent. The culture preliminary has gram-negative rods. Blood culture has no growth in 1 day. The patient also had some cultures taken from the leakage around the suprapubic catheter. He is currently awake and alert. He tells me that he was feeling cold but the room was very cold last night and he denies t[place] chills. He is afebrile and has had no fever since admission. White blood cell count was elevated at 14.6 yesterday. He has clear urine in the suprapubic catheter and also the Torres catheter bag. PAST MEDICAL HISTORY Hypertension, myocardial infarction in 2000, prostate cancer, DVT of the left leg and also groin. Coronary artery bypass graft surgery in 2002. Right knee replacement. Cardiac stents, TURP prostate surgery. ALLERGIES ALLOPURINOL. MEDICATIONS 1. Metamucil. 2. Toprol XL. 3. Lipitor. 4. Piperacillin./tazobactam. 5. Rufina-Colace. 6. Toradol. 7. Vancomycin dose was given earlier today. SOCIAL HISTORY . No tobacco. Occasional alcohol in the form of wine. No illicit drugs. FAMILY HISTORY Noncontributory. REVIEW OF SYSTEMS GENERAL: No fever or chills. HEAD/EARS/EYES/NOSE/THROAT: No visual blurring or diplopia. No difficulty swallowing or soreness of the throat. No nasal bleeding. Respiratory: Denies shortness of breath or cough. CARDIOVASCULAR: Denies chest pain or palpitation. GASTROINTESTINAL: Denies abdominal pain, nausea or vomiting. GENITOURINARY: Significant for pain in the testicle. INTEGUMENTARY: No skin rash or itching. HEMATOPOIETIC: No easy bruising or bleeding. MUSCULOSKELETAL: No muscle aches or pains. PSYCHIATRIC: No problems with mood, depression or agitation. PHYSICAL EXAMINATION GENERAL: This is a pleasant slender male in no acute distress. He is awake and alert and oriented. VITAL SIGNS: Include temperature 98.5, BP 114/59, respirations 18, heart rate 66. HEAD, EARS, NOSE AND THROAT: Extraocular movements grossly intact, pupils reactive to light. No icterus. Oropharynx moist mucosa. No visible lesions. NECK: Supple. No adenopathy. LUNGS: Clear to auscultation. HEART: Regular rate and rhythm. No murmurs, rubs or gallops. ABDOMEN: Bowel sounds present, soft, nontender. : The patient has a suprapubic catheter with no erythema around the catheter entry. The scrotum is extremely swollen and erythematous and mildly tender. RECTAL: Not performed. EXTREMITIES: No clubbing or cyanosis or edema. SKIN: No rash. NEUROLOGIC: No gross focal findings. LABORATORY DATA WBC 11.2, platelets 308, 68% neutrophils, 14% lymphocytes, 15% monocytes, hemoglobin 11.6, creatinine 1.09, BUN 17. Urinalysis revealed many budding yeast and many bacteria and large leukocyte esterase. IMPRESSION 1. Scrotal abscess and cellulitis. 2. Failed outpatient antibiotic treatment with Bactrim. 3. Recent ureteral artificial sphincter removal for lack of proper function. RECOMMENDATIONS 1. Continue piperacillin/tazobactam. 2. Monitor gram-negative bacteria in the urine. 3. Monitor white blood cell count and clinical status. White blood cell count has improved and the patient thinks that the swelling and erythema has improved compared to yesterday. Thank you for this consultation. I will monitor the patient's progress and cultures and further recommendations will be given on followup if necessary. Cullen Mercado MD FD/CHRISTIAN /1:09 PM /5:15 PM
[2017-01-19] MEDS: ATORVASTATIN 40 MG TAB PO SCH (20:24)
[2017-01-20] VITALS (8 sets, daily range): BP systolic 126–161; BP diastolic 60–71; PULSE 57–69; RESP 16–19; TEMP 98.2–98.7; O2SAT 90–100
[2017-01-20] MEDS: PIPERACIL-TAZO 3.375 GM PREMIX 50 ML IV SCH ×2 (05:30→13:20)
[2017-01-20] MEDS: HEPARIN SODIUM - SQ 10,000 UNITS/ML VIAL SQ SCH ×3 (05:31→20:41)
[2017-01-20] MEDS ORDERED: INSULIN HUMAN REGULAR 1,000 UNITS/10 ML VIAL SQ PRN (06:00)
[2017-01-20] MEDS ORDERED: SODIUM CHLORID 0.9% 500 ML IV PRN (06:00)
[2017-01-20] MEDS ORDERED: POVIDONE IODINE 5% (ANTISEPSIS KIT) 4 APPLICATIONS EACH NARE PRN (06:00)
[2017-01-20] MEDS ORDERED: CHLORHEXIDINE GLUCONATE 2 % 1 PACK (2 CLOTHS) TOPICAL PRN (06:00)
[2017-01-20] MEDS ORDERED: LACTATED RINGER'S 1000 ML IV PRN (06:00)
[2017-01-20] MEDS: METOPROLOL SUCCINATE 50 MG EXTENDED RELEASE TAB PO SCH (07:33)
[2017-01-20] MEDS: DOCUSATE SODIUM 50 MG/SENNA 8.6 MG TAB PO SCH ×2 (07:34→20:40)
[2017-01-20] MEDS: SODIUM CHLORIDE 0.9% FLUSH 10 ML FLUSH IV FLUSH SCH ×2 (07:36→20:40)
[2017-01-20] MEDS: SODIUM CHLOR 0.9% 1000 ML INJ 1,000 ML IV SCH ×2 (07:36→17:36)
[2017-01-20] MEDS: PSYLLIUM FIBER SF/GF 6 GM POWD PKT PO SCH (07:36)
[2017-01-20] MEDS ORDERED: BUPIVACAINE HCL PF 0.25% 30 ML VIAL ONE (09:03)
[2017-01-20] MEDS ORDERED: GENTAMICIN SULFATE 80 MG/2 ML VIAL ONE (09:03)
[2017-01-20] MEDS ORDERED: ceFAZolin INJ 1,000 MG VIAL ONE (09:03)
--- NOTE | 2017-01-20 09:42 | HHI.FPPN ---
Subjective Remarks Pain in right testes. NPO since midnight. (Johnie Segal MD R2) Objective Vitals Vital Signs Date Time Temp Pulse Resp B/P Pulse Ox O2 Delivery O2 Flow Rate FiO2 01/20/17 08:27 95 21 01/20/17 08:10 65 01/20/17 08:10 65 01/20/17 08:10 Room Air 01/20/17 08:00 98.3 61 18 143/68 95 01/20/17 04:00 98.4 62 16 141/68 95 01/20/17 00:00 98.4 63 16 161/71 95 01/19/17 20:00 98.9 70 18 143/65 96 01/19/17 20:00 66 01/19/17 20:00 Room Air 01/19/17 17:22 96 21 01/19/17 16:00 98.4 66 18 140/63 96 01/19/17 12:00 98.5 66 18 114/59 96 01/19/17 10:23 95 21 I/O 01/19/17 01/19/17 01/19/17 01/20/17 01/20/17 01/20/17 07:00 15:00 23:00 07:00 15:00 23:00 Intake Total 480 ml 240 ml 589 ml Output Total 250 ml 700 ml 1275 ml 2125 ml Balance -250 ml -220 ml -1035 ml -1536 ml Intake Oral 480 ml 240 ml 0 ml IV Total 589 ml Output Urine Total 250 ml 700 ml 1275 ml 2125 ml # Bowel Movements 1 0 (Johnie Segal MD R2) Result Diagram: 01/19/17 0604 01/19/17 0604 A/P Assessment and Plan Mr. Nolan is a 82-year-old male with a past medical history of coronary artery disease, prostate cancer status post resection in 2013, artificial urethral sphincter placement, urinary incontinence, and hypertension , presenting with increased scrotal swelling and redness x 2 weeks. He will be admitted for pain control and IV antibiotics. (Johnie Segal MD R2) Problem List: (1) Sepsis Status: Resolved Plan: RR > 20, WBCs at 14.4 k, with suspected source = Urinary tract, scrotum. Lactic acid WNL. Treat with broad spectrum antibiotics: Zosyn 3.375 mg IV q 6 hrs, started 6/9 - Vancomycin 15 mg/kg q 12 hr (Vancomycin consult), started 01/18 - Follow up urine and blood cultures. ID consulted we appreciate their recommendations. (2) Swelling of scrotum Status: Acute Plan: CT abd/pelvis with contrast noted: "Presumed inflammatory process in and around the right scrotum that does not extend into the perineum. There would be a small hernia sac present. There is induration extending along and into the inguinal canal." US of right testes showed absent blood flow. Urology plans on Right orchiectomy today 01/20. Suspect scrotal cellulitis/abscess. Tess gangrene unlikely given physical exam and no extension of inflammatory process into the perineum on CT. Pain control with: Ketoralac 30 mg IV q 6 hr prn pain 1-5 Morphine 2 mg IV q q 4 hr prn pain 6-10 Hydromorphone 0.5 mg q 3 hr breakthrough pain Consult urology. We appreciate their assistance. (3) Hyperlipidemia Status: Chronic Plan: Continue statin therapy. (4) CAD (coronary artery disease) Status: Acute Plan: BP control with home medications including Beta bev (Metoprolol 150 mg ER daily). Hold antiplatelet therapy given the possible need for surgical procedure. Lipid control as above. (5) Nutrition, metabolism, and development symptoms Status: Acute Plan: Nutrition: Nothing by mouth until evaluated by urology. Electrolytes: at goal except for sodium of 132, repeat BMP in am DVT ppx: SCDs given high risk of bleeding. wdw Dr. Quan (Johnie Segal MD R2) Johnie Segal MD R2 Jan 20, 2017 09:42 Toya Quan MD Jan 31, 2017 11:41
--- NOTE | 2017-01-20 10:07 | EKG ---
Date Performed: 01/18/2017 Time Performed: 16:05:44 PTAGE: 82 years EKG: Sinus rhythm NORMAL ECG NO PREVIOUS TRACING DOCTOR: Bassam Ulloa Interpretating Date/Time 01/20/2017 09:52:30
[2017-01-20] MEDS ORDERED: SUGAMMADEX SODIUM 200 MG/2 ML VIAL IV PUSH ONE ×2 (11:37)
[2017-01-20] MEDS ORDERED: LACTATED RINGER'S 1000 ML INJ 1,000 ML IV ONE (12:00)
[2017-01-20] MEDS ORDERED: ePHEDrine/NS 25 MG/5 ML SYR IV ONE (12:00)
[2017-01-20] MEDS ORDERED: ONDANSETRON HCL 4 MG/2 ML VIAL IV PUSH ONE (12:00)
[2017-01-20] MEDS ORDERED: PROPOFOL 200 MG/20 ML AMP IV ONE (12:00)
[2017-01-20] MEDS ORDERED: ACETAMINOPHEN 1000 MG/100 ML VIAL IV ONE (12:21)
--- NOTE | 2017-01-20 12:45 | HHI.PR ---
Subjective Patient symptoms today Successful right orchiectomy for right ischemic testicle and wound debridement and irrigation. The previous urethral closure was identified and the proximal urethra was successfully closed. Patient has an SPT in place with 3 JOSI drains, located in the right groin, right hemiscrotum, and perineum. -Continue broad spectrum abx -Will continue to follow with drains to be removed in the next few days Objective Result Diagram: 01/19/1760301/19/17603 Medications and IVs Assessment and Plan Problem List: (1) Swelling of scrotum ICD Code: N50.89 Status: Acute Kang Kamara MD Jan 20, 2017 12:45
[2017-01-20] MEDS ORDERED: DO NOT ADM ANY ANTICOAGULANT DRUGS PRN (12:56)
[2017-01-20] MEDS ORDERED: fentaNYL CITRATE 250 MCG/5 ML AMP ONE (13:04)
[2017-01-20] MEDS ORDERED: *morphine SULFATE 8 MG/ML PERIprocedure ONLY ONE (13:18)
[2017-01-20] MEDS ORDERED: MORPHINE SULFATE 4 MG/ML INJ IV PUSH PRN ×3 (14:15)
[2017-01-20] MEDS: VANCOMYCIN INJ 1,750 MG in SODIUM CHLORID 0.9% 500 ML INJ 500 ML IV SCH (14:34)
--- NOTE | 2017-01-20 17:21 | HHI.IDPN ---
Note Infectious Disease Note Patient says he feels okay. went for surgery today. Exploration, r. orchiectomy for ischemia of the r. testicle. Culture prior to surgery from suprapubic leakage and urethral around sanchez has E. coli ESBL. and elizabeth. The patient had placement of an artificial urethral sphincter which failed to work properly and therefore it was removed on January 03. He subsequently developed redness and swelling of the right testicle and he was also having leakage of urine from the scrotum. He was put on Bactrim after removal of the device. He developed increased swelling and therefore presented to the emergency department for evaluation. PAST MEDICAL HISTORY Hypertension, myocardial infarction in 2000, prostate cancer, DVT of the left leg and also groin. Coronary artery bypass graft surgery in 2002. Right knee replacement. Cardiac stents, TURP prostate surgery. ALLERGIES ALLOPURINOL. ANTIBIOTICS Piperacillin./tazobactam. Vancomycin. OBJECTIVE: Vital Signs Date Time Temp Pulse Resp B/P Pulse Ox O2 Delivery O2 Flow Rate FiO2 01/20/17 16:00 98.2 57 18 126/60 100 01/20/17 13:45 97.8 59 16 118/61 96 Nasal Cannula 2 01/20/17 13:30 60 15 114/63 95 Nasal Cannula 2 01/20/17 13:23 15 01/20/17 13:15 62 15 112/60 94 Nasal Cannula 2 01/20/17 13:00 63 15 109/58 98 Nasal Cannula 3 01/20/17 12:55 97.4 66 16 114/56 95 Nasal Cannula 3 01/20/17 09:45 56 16 135/63 95 01/20/17 08:27 95 21 01/20/17 08:10 65 01/20/17 08:10 65 01/20/17 08:10 Room Air 01/20/17 08:00 98.3 61 18 143/68 95 01/20/17 04:00 98.4 62 16 141/68 95 01/20/17 00:00 98.4 63 16 161/71 95 01/19/17 20:00 98.9 70 18 143/65 96 01/19/17 20:00 66 01/19/17 20:00 Room Air 01/19/17 17:22 96 21 01/19/17 01/19/17 01/20/17 15:00 23:00 07:00 Intake Total 480 ml 240 ml 589 ml Output Total 700 ml 1275 ml 2125 ml Balance -220 ml -1035 ml -1536 ml Intake Oral 480 ml 240 ml 0 ml IV Total 589 ml Output Urine Total 700 ml 1275 ml 2125 ml # Bowel Movements 1 0 Laboratory Tests Test 01/19/17 06:04 White Blood Count 11.2 TH/MM3 Red Blood Count 4.11 MIL/MM3 Hemoglobin 11.6 GM/DL Hematocrit 36.5 % Mean Corpuscular Volume 89.0 FL Mean Corpuscular Hemoglobin 28.3 PG Mean Corpuscular Hemoglobin 31.8 % Concent Red Cell Distribution Width 14.6 % Platelet Count 308 TH/MM3 Mean Platelet Volume 7.0 FL Neutrophils (%) (Auto) 68.3 % Lymphocytes (%) (Auto) 14.4 % Monocytes (%) (Auto) 15.5 % Eosinophils (%) (Auto) 1.2 % Basophils (%) (Auto) 0.6 % Neutrophils # (Auto) 7.7 TH/MM3 Lymphocytes # (Auto) 1.6 TH/MM3 Monocytes # (Auto) 1.7 TH/MM3 Eosinophils # (Auto) 0.1 TH/MM3 Basophils # (Auto) 0.1 TH/MM3 CBC Comment DIFF FINAL Differential Comment Laboratory Tests Test 01/19/17 06:04 Sodium Level 135 MEQ/L Potassium Level 3.8 MEQ/L Chloride Level 100 MEQ/L Carbon Dioxide Level 22.6 MEQ/L Anion Gap 12 MEQ/L Blood Urea Nitrogen 17 MG/DL Creatinine 1.09 MG/DL Estimat Glomerular Filtration 65 ML/MIN Rate Random Glucose 85 MG/DL Calcium Level 8.4 MG/DL Microbiology Date/Time Procedure Status Source Growth 01/18/17 13:20 Urine Culture - Preliminary Resulted Urine Catheterized Urine Escherichia Coli Esbl Positive 01/18/17 15:50 Aerobic Blood Culture - Preliminary Resulted Blood Arterial Line NO GROWTH IN 2 DAYS 01/18/17 15:50 Anaerobic Blood Culture - Preliminary Resulted Blood Arterial Line NO GROWTH IN 2 DAYS 01/18/17 15:55 Aerobic Blood Culture - Preliminary Resulted Blood Arterial Line NO GROWTH IN 2 DAYS 01/18/17 15:55 Anaerobic Blood Culture - Preliminary Resulted Blood Arterial Line NO GROWTH IN 2 DAYS 01/19/17 10:30 Gram Stain - Final Resulted Wound Groin 01/19/17 10:30 Wound Culture - Preliminary Resulted Elizabeth Albicans 01/19/17 10:30 Gram Stain - Final Resulted Wound Scrotum 01/19/17 10:30 Wound Culture - Preliminary Resulted Gram Negative Abraham PHYSICAL EXAMINATION GENERAL: No acute distress. He is awake and alert and oriented. HEAD, EARS, NOSE AND THROAT: Extraocular movements grossly intact, pupils reactive to light. No icterus. Oropharynx moist mucosa. No visible lesions. NECK: Supple. No adenopathy. LUNGS: Clear to auscultation. HEART: Regular rate and rhythm. No murmurs, rubs or gallops. ABDOMEN: Bowel sounds present, soft, nontender. : The patient has drainage of serous fluid around the suprapubic catheter. Dressing and packing at the scrotum. 3 JOSI catheters has serous drainage. EXTREMITIES: No clubbing or cyanosis or edema. SKIN: No rash. NEUROLOGIC: No gross focal findings. IMPRESSION 1. Scrotal abscess and cellulitis. ESBL E. coli. 2. Failed outpatient antibiotic treatment with Bactrim. 3. Recent ureteral artificial sphincter removal for lack of proper function. RECOMMENDATIONS 1. Stop piperacillin/tazobactam. 2. Start Meropenem. 3. Add Diflucan. 4. Stop Vanco. 5. Monitor clinical status. Jose Infante MD Jan 20, 2017 17:21
[2017-01-20] MEDS ORDERED: MISCELLANEOUS PHARMACY INFORMATION XX PRN ×2 (17:30)
[2017-01-20] MEDS ORDERED: ASP: Path resistant to other antimicrobials, culture proven PRN (17:30)
[2017-01-20] MEDS: KETOROLAC TROMETHAMINE 60 MG/2 ML (IM) VIAL IM SCH (17:31)
[2017-01-20] MEDS: FLUCONAZOLE 200 MG TAB PO SCH (17:39)
[2017-01-20] MEDS: MEROPENEM INJ 1,000 MG in SODIUM CHLORIDE 0.9% INJ 100 ML IV SCH (18:00)
[2017-01-20] MEDS: ATORVASTATIN 40 MG TAB PO SCH (20:40)
--- NOTE | 2017-01-20 21:16 | MP ---
cc: SHELLIE CLEMENTS MD DATE OF SURGERY 01/20/2017 PREOPERATIVE DIAGNOSES 1. Right ischemic testicle. 2. Scrotal abscess. 3. Open urethral transection from prior procedure stented with urethral catheter. POSTOPERATIVE DIAGNOSES 1. Right ischemic testicle. 2. Scrotal abscess. 3. Open urethral transection from prior procedure stented with urethral catheter. SURGEON Shellie Clements MD TREATMENT PERFORMED 1. Scrotal exploration. 2. Wound irrigation, debridement and washout. 3. Right orchiectomy. 4. Closure of proximal urethral stump. PERTINENT FINDINGS 1. Right testicle was clearly necrotic. The cord was friable with no blood flow. Right testicle successfully removed 2. Significant purulence and hematoma noted in the right groin and right hemiscrotum. This was evacuated and irrigated copiously. 3. Urethral proximal edge was noted with large separation between the distal and proximal ends. Catheter stretched across the distal and proximal urethra. The proximal portion of the urethra was mobilized and ligated successfully. Drains: 1. Suprapubic tube 2. Right groin drain 3. Right hemiscrotum drain 4. Right perineal drain HISTORY OF THE PRESENT ILLNESS Sharon Cheng is an 82-year-old male who was found to have prostate cancer years ago in 2013 which he underwent radical prostatectomy with subsequent radiation therapy. The patient developed significant urinary incontinence for which he underwent artificial urinary sphincter. The sphincter did not appear to be functioning and therefore, was subsequently removed on January 03, 2017. At the time of surgery the urethra was ligated due to significant urinary incontinence with suprapubic tube present for bladder drainage. Postoperatively, however, the patient had significant pain and swelling in the right hemiscrotum that persisted. He continued to deteriorate clinically. The patient was evaluated in the clinic and a catheter was able to be passed across the urethra and adequately drain the bladder. However, his right scrotal swelling was concerning and referred to the emergency department at which point a CT scan identified significant fluid in the right hemiscrotum and groin. Ultrasound identified no blood flow to the right testicle. The patient presents now for treatment with scrotal exploration, right orchiectomy, repair of the urethra. PROCEDURE IN DETAILS After proper informed consent was obtained, the patient was brought to the operating room and remained supine on the operating room table. Bilateral lower extremities sequential compression devices were placed. The patient placed under general anesthesia. The patient was then placed in low lithotomy position and prepped and draped in standard surgical fashion. After appropriate time out was completed, the right groin incision was entered with immediate release of dark, bloody fluid that appeared purulent. The cavity was irrigated and debrided and traveled down to the right groin with a connection to the right hemiscrotum. This was completely irrigated with all purulent material and necrotic tissue removed. At this point the right hemiscrotum was entered using a midline incision along the median raphe. Upon entry of the right hemiscrotum a clearly necrotic right testicle was identified. Careful dissection was carried out to free the testicle from the hemiscrotum, however, the testicle was friable and the testicle appeared to easily come detached from the cord. There was no significant bleeding. The actual identification of the cord was difficult given the intense reaction of the right hemiscrotum. The cord again was not clearly identified in the right groin with no evidence of active bleeding. However, again there was no obvious cord structure identified given the intense reaction in this area. The right hemiscrotum was irrigated and debrided to remove all necrotic tissue. Following this the urethra was unable to be clearly identified from this scrotal incision, therefore, the perineal incision was then reopened in order to access the proximal urethra. Careful dissection was carried down and the urethral Torres catheter was identified. The urethra was clearly disconnected from the proximal and distal portion with the catheter extending across. The proximal portion was identified and grasped with Allis clamps. The urethra was then dissected off of the corpora circumferentially freeing up the urethra. The more proximal urethra did appear to be rather healthy and robust. At this point the Torres catheter was removed and a clamp was placed across the proximal urethra. Several PDS ties were then used to close the urethra as well as a few Vicryl ties in order to insure proper closure of this proximal urethral stump. As the patient has a history of radiation therapy it is possible that the urethral ligation may break down in the future. However, at the completion of this the urethra appeared to be completely closed. No obvious bleeding was noted. Therefore, the perineal incision was closed in two layers with PDS and Vicryl sutures. The skin was then closed in a running Vicryl stitch. The right hemiscrotum again was irrigated and a few interrupted Vicryl stitches were made to leave the wound open and drain. Of note a drain was placed in the perineal incision just in front of the urethra. Another drain was placed in the right hemiscrotum extending from the right groin down to the right hemiscrotum. The right hemiscrotum wound was left partially open with loose interrupted stitches in the skin and subcutaneous tissue. The right groin incision was also irrigated and debrided and several Vicryl stitches were used to close the fascial layer. A drain was place beneath this layer as well. The skin was left open and the wound was packed with xeroform gauze and dressings applied. In total three drains were placed one in the right groin, one in the right groin extending to the right hemiscrotum and one in the perineal incision. At this point the procedure was completed. Therefore, the patient was awoke from anesthesia and taken to the postanesthesia care unit in good and stable condition. The patient tolerated the treatment well without complications. DISPOSITION The patient is to return to his inpatient hospital bed. Continue IV antibiotics. The drains will be subsequently removed in the next few days. He will require prolonged antibiotic course and close followup. Flash Samano /12:32 PM /9:13 AM [facility]
[2017-01-21] VITALS (7 sets, daily range): BP systolic 112–147; BP diastolic 55–67; PULSE 55–88; RESP 16–20; TEMP 97.9–99.6; O2SAT 91–98
[2017-01-21] MEDS: MEROPENEM INJ 1,000 MG in SODIUM CHLORIDE 0.9% INJ 100 ML IV SCH ×3 (02:32→18:16)
[2017-01-21] MEDS: SODIUM CHLOR 0.9% 1000 ML INJ 1,000 ML IV SCH ×2 (02:32→13:33)
[2017-01-21] MEDS: HEPARIN SODIUM - SQ 10,000 UNITS/ML VIAL SQ SCH ×3 (05:04→22:12)
[2017-01-21] MEDS: KETOROLAC TROMETHAMINE 60 MG/2 ML (IM) VIAL IM SCH ×2 (05:04)
[2017-01-21 07:25] LABS: AUTOMATED NEUTROPHIL # 6.8 TH/MM3 (1.8-7.7); BASOPHIL % 0.4 % (0.0-2.0); EOSINOPHIL # 0.1 TH/MM3 (0-0.4); EOSINOPHIL % 1.4 % (0.0-4.0); HEMATOCRIT 33.5 % (39.0-51.0); HEMO FLAGS DIFF FINAL; LYMPH % 13.8 % (9.0-44.0); LYMPHOCYTE # 1.3 TH/MM3 (1.0-4.8); MEAN CELL VOLUME 87.5 FL (80.0-100.0); MEAN CORPUSCULAR HEMOGLOBIN 29.8 PG (27.0-34.0); MONO % 14.3 % (0.0-8.0); NEUT % 70.1 % (16.0-70.0); PLATELET COUNT 334 TH/MM3 (150-450); RED BLOOD COUNT 3.84 MIL/MM3 (4.50-5.90); RED CELL DISTRIBUTION WIDTH 14.9 % (11.6-17.2); WHITE BLOOD COUNT 9.7 TH/MM3 (4.0-11.0)
[2017-01-21 07:42] LABS: BICARBONATE 23.6 MEQ/L (21.0-32.0); POTASSIUM 4.2 MEQ/L (3.5-5.1)
[2017-01-21] MEDS: SODIUM CHLORIDE 0.9% FLUSH 10 ML FLUSH IV FLUSH SCH ×2 (09:00→20:51)
[2017-01-21] MEDS: METOPROLOL SUCCINATE 50 MG EXTENDED RELEASE TAB PO SCH (09:00)
[2017-01-21] MEDS: FLUCONAZOLE 200 MG TAB PO SCH (09:07)
[2017-01-21] MEDS: DOCUSATE SODIUM 50 MG/SENNA 8.6 MG TAB PO SCH ×2 (09:07→20:51)
[2017-01-21] MEDS: PSYLLIUM FIBER SF/GF 6 GM POWD PKT PO SCH (09:08)
[2017-01-21] MEDS: KETOROLAC TROMETHAMINE 30 MG/ML (IVP) VIAL IV PUSH SCH ×2 (12:00→18:00)
--- NOTE | 2017-01-21 13:38 | HHI.FPPN ---
Subjective Remarks No acute events overnight. Afebrile, vital signs stable. Patient has not had a bowel movement. He also complains of difficulty sleeping, at home takes Ambien. Denies any pain. Denies nausea/vomiting/diarrhea. (Nicol Lopes MD R3) Objective Vitals Vital Signs Date Time Temp Pulse Resp B/P Pulse Ox O2 Delivery O2 Flow Rate FiO2 01/21/17 08:50 95 21 01/21/17 08:00 98.3 67 20 119/57 95 01/21/17 04:00 Room Air 01/21/17 04:00 98.9 77 20 112/55 91 01/21/17 00:00 Room Air 01/21/17 00:00 99.6 88 20 147/67 91 01/20/17 20:00 Room Air 01/20/17 20:00 69 01/20/17 20:00 98.7 69 19 140/64 90 01/20/17 17:36 99 21 01/20/17 16:00 98.2 57 18 126/60 100 01/20/17 13:45 97.8 59 16 118/61 96 Nasal Cannula 2 01/20/17 13:30 60 15 114/63 95 Nasal Cannula 2 I/O 01/20/17 01/20/17 01/20/17 01/21/17 01/21/17 01/21/17 07:00 15:00 23:00 07:00 15:00 23:00 Intake Total 589 ml 1300 ml 1428 ml 120 ml Output Total 2125 ml 1110 ml 600 ml Balance -1536 ml 190 ml 1428 ml -480 ml Intake Oral 0 ml 0 ml 240 ml 120 ml IV Total 589 ml 100 ml 1188 ml Other 1200 ml Output Urine Total 2125 ml 1000 ml 600 ml Drainage Total 10 ml Estimated Blood Loss 100 ml # Voids 1 # Bowel Movements 0 0 0 (Nicol Lopes MD R3) Result Diagram: 01/21/1763801/21/17638 Objective Remarks Gen.: No acute distress Head: Normocephalic. Atraumatic. EENT: Pupils equal round and reactive to light. Nose without drainage. Airway intact. Throat without injection. Cardiovascular: Regular rate and rhythm. No murmurs, rubs or gallops. Respiratory: Lungs clear to auscultation bilaterally. No wheezes or rhonchi. Abdomen: Soft, nontender, nondistended. No peritoneal signs. : Scrotum and penis in dressing; C/D/I. 3 JOSI drains draining res SS material. No extension of erythema. Suprapubic catheter in place with surrounding purulent drainage. Musculoskeletal: No gross deformities. No edema. Skin: No obvious rashes or erythema. Neuro: Sensory and motor grossly intact. Cranial nerves II through XII grossly intact. Psych: Appropriate mood and affect (Nicol Lopes MD R3) A/P Assessment and Plan Mr. Nolan is a 82-year-old male with a past medical history of coronary artery disease, prostate cancer status post resection in 2013, artificial urethral sphincter placement, urinary incontinence, and hypertension , presenting with increased scrotal swelling and redness x 2 weeks. Patient is status post removal of artificial sphincter, found to have no blood flow to right testicle. Is now status post right orchiectomy. Course complicated by ESBL cellulitis. 1. ESBL cellulitis of right scrotum - Infectious disease consulted, appreciate their recommendations - Patient currently on meropenem for ESBL cellulitis and UTI and Diflucan for Dinorah - Admitted for sepsis, currently resolved. Started on Vanc/Zosyn in ED. - Wound irrigation and debridement with washout on 01/20 2. Ischemic right testicle. - S/P right orchiectomy on 01/20 - JOSI drain [address], urology following appreciate their recommendations 3. Chronic medical conditions Hypertension: Continue home metoprolol Hyperlipidemia: Continue home statin 4. FEN Fluids: NS at 100 cc/hr Heart healthy diet Electrolytes: Replete when necessary DVT prophylaxis: Heparin 5000 units every 8 hours Discharge Planning Pending clinical improvement, clearance by urology and infectious disease recommendations. Patient is not currently ready for discharge. (Nicol Lopes MD R3) Attending Attestation Patient seen and examined Case reviewed and discussed Agree with plan of care as discussed with me and documented in the resident note. (Toya Quan MD) Problem List: (1) ESBL (extended spectrum beta-lactamase) producing bacteria infection Status: Acute (2) Sepsis Status: Resolved (3) Swelling of scrotum Status: Acute (4) Hyperlipidemia Status: Chronic (5) Scrotal abscess Status: Acute (Nicol Lopes MD R3) Nicol Lopes MD R3 Jan 21, 2017 13:38 Toya Quan MD Jan 31, 2017 11:43 Consult urology. We appreciate their assistance. (3) Hyperlipidemia Status: Acute Plan: Continue statin therapy. (4) CAD (coronary artery disease) Status: Acute Plan: BP control with home medications including Beta bev (Metoprolol 150 mg ER daily). Hold antiplatelet therapy given the possible need for surgical procedure. Lipid control as above. (5) Nutrition, metabolism, and development symptoms Status: Acute Plan: Nutrition: Nothing by mouth until evaluated by urology. Electrolytes: at goal except for sodium of 132, repeat BMP in am DVT ppx: SCDs given high risk of bleeding. wdw Nicol Moreland MD R3 Jan 21, 2017 13:38
[2017-01-21] MEDS ORDERED: BISACODYL 10 MG SUPP RECTAL PRN (14:00)
--- NOTE | 2017-01-21 19:10 | HHI.PR ---
Subjective Patient symptoms today POD#1 Scrotal exploration, wound debridement, Right orchectomy, Urethral closure Doing well, pain well controlled. No fevers. Drains in place, draining well. Objective Vital Signs Vital Signs Date Time Temp Pulse Resp B/P Pulse Ox O2 Delivery O2 Flow Rate FiO2 01/21/17 16:00 98.3 57 18 142/65 97 01/21/17 12:00 97.9 59 18 125/58 98 01/21/17 08:50 95 21 01/21/17 08:00 Room Air 01/21/17 08:00 98.3 67 20 119/57 95 01/21/17 08:00 55 01/21/17 04:00 Room Air 01/21/17 04:00 98.9 77 20 112/55 91 01/21/17 00:00 Room Air 01/21/17 00:00 99.6 88 20 147/67 91 01/20/17 20:00 Room Air 01/20/17 20:00 69 01/20/17 20:00 98.7 69 19 140/64 90 Intake & Output 01/21/17 01/21/17 07:00 19:00 Intake Total 1548 ml 720 ml Output Total 600 ml 2325 ml Balance 948 ml -1605 ml Intake Oral 360 ml 720 ml IV Total 1188 ml Output Urine Total 600 ml 2325 ml # Voids 1 # Bowel Movements 0 1 Result Diagram: 01/21/17 0639 01/21/17 0639 Objective Remarks Scrotal incision partially open, no erythema or drainage noted. induration improved. Drain in place on JOSI suction Right groin incision with pressure dressing in place to allow JOSI drain suction Perineal incision healing well, no drainage SPT in place, clear yellow urine Medications and IVs Current Medications Medications (Trade) Dose Ordered Sig/Kena Route Start Time Stop Time Status Last Admin Atorvastatin Calcium 40 mg 40 mg HS PO 01/18/17 21:00 01/20/17 20:40 (NS 1000 ml Inj) 1,000 ml @ 100 mls/hr Q10H IV 01/18/17 16:00 01/21/17 13:33 (Zofran Inj) 4 mg Q6H PRN IVP 01/18/17 15:30 (Narcan Inj) 0.4 mg UNSCH PRN IV 01/18/17 15:30 (NS Flush) 2 ml UNSCH PRN IV FLUSH 01/18/17 15:30 01/18/17 23:15 (NS Flush) 2 ml BID IV FLUSH 01/18/17 21:00 01/19/17 08:39 (Metamucil Smooth Texture Sf/ Gf Pkt) 1 pkt DAILY PO 01/19/17 09:00 01/21/17 09:08 (Catapres) 0.1 mg Q6H PRN PO 01/18/17 19:30 Heparin Sodium (Porcine) 5000 units 5,000 units Q8HR SQ 01/19/17 15:15 01/21/17 15:33 Lactated Ringer's 1,000 ml @ 30 mls/hr Q24H PRN IV 01/20/17 06:00 01/23/17 05:59 (NS 500 ml Inj) 500 ml @ 30 mls/hr [id number] PRN IV 01/20/17 06:00 01/23/17 05:59 (Morphine Inj) 2 mg Q3H PRN IV PUSH 01/20/17 14:15 01/20/17 22:17 (Morphine Inj) 4 mg Q3H PRN IV PUSH 01/20/17 14:15 01/20/17 14:34 Morphine Sulfate 2 mg 2 mg Q3H PRN IV PUSH 01/20/17 14:15 (Merrem Inj/NS Inj) 100 ml @ 200 mls/hr Q8H IV 01/20/17 18:00 01/21/17 18:16 (Diflucan) 200 mg DAILY PO 01/20/17 17:30 01/21/17 09:07 (Toradol Inj) 60 mg Q6HR IV PUSH 01/21/17 12:00 01/26/17 11:59 (Rufina-Colace) 2 tab BID PO 01/21/17 21:00 (Dulcolax Supp) 10 mg ONCE PRN RECTAL 01/21/17 14:00 01/21/17 23:00 01/21/17 15:27 (Ambien) 5 mg HS PRN PO 01/21/17 14:00 (Toprol Xl) 100 mg DAILY PO 01/22/17 09:00 Assessment and Plan Problem List: (1) Swelling of scrotum ICD Code: N50.89 Status: Acute Assessment and Plan -Continue local wound care with dressing changes -Drains to JOSI suction -Continue antibiotics -Will re-evaluate tomorrow -If patient continues to improve, will consider PO abx and removal of some drains Kang Kamara MD Jan 21, 2017 19:09
[2017-01-21] MEDS: ATORVASTATIN 40 MG TAB PO SCH (20:51)
[2017-01-21] MEDS: ZOLPIDEM TARTRATE 5 MG TAB PO PRN (22:44)
[2017-01-22] VITALS: BP 134/67; PULSE 60; RESP 18; TEMP 98.6; O2SAT 93
[2017-01-22] MEDS: SODIUM CHLOR 0.9% 1000 ML INJ 1,000 ML IV SCH
[2017-01-22] MEDS: MEROPENEM INJ 1,000 MG in SODIUM CHLORIDE 0.9% INJ 100 ML IV SCH ×3 (02:02→16:58)
[2017-01-22 04:00] VITALS: BP 139/65; PULSE 66; RESP 18; TEMP 98.5; O2SAT 94
[2017-01-22] MEDS: HEPARIN SODIUM - SQ 10,000 UNITS/ML VIAL SQ SCH ×3 (05:59→22:23)
[2017-01-22] MEDS: KETOROLAC TROMETHAMINE 30 MG/ML (IVP) VIAL IV PUSH SCH ×4 (06:00→16:59)
[2017-01-22 06:25] LABS: AUTOMATED NEUTROPHIL # 4.6 TH/MM3 (1.8-7.7); BASOPHIL % 0.4 % (0.0-2.0); EOSINOPHIL # 0.7 TH/MM3 (0-0.4); HEMATOCRIT 33.4 % (39.0-51.0); HEMO FLAGS DIFF FINAL; LYMPH % 15.1 % (9.0-44.0); LYMPHOCYTE # 1.1 TH/MM3 (1.0-4.8); MEAN CELL VOLUME 86.9 FL (80.0-100.0); MEAN CORPUSCULAR HEMOGLOBIN 29.3 PG (27.0-34.0); MEAN CORPUSCULAR HGB CONC 33.7 % (32.0-36.0); MONO % 14.7 % (0.0-8.0); NEUT % 60.8 % (16.0-70.0); PLATELET COUNT 321 TH/MM3 (150-450); RED BLOOD COUNT 3.84 MIL/MM3 (4.50-5.90); RED CELL DISTRIBUTION WIDTH 14.6 % (11.6-17.2); WHITE BLOOD COUNT 7.5 TH/MM3 (4.0-11.0)
[2017-01-22 06:41] LABS: BICARBONATE 24.9 MEQ/L (21.0-32.0); POTASSIUM 3.9 MEQ/L (3.5-5.1)
[2017-01-22 08:00] VITALS: BP 131/70; PULSE 64; RESP 16; TEMP 98.1; O2SAT 94
[2017-01-22] MEDS: METOPROLOL SUCCINATE 50 MG EXTENDED RELEASE TAB PO SCH (08:20)
[2017-01-22] MEDS: DOCUSATE SODIUM 50 MG/SENNA 8.6 MG TAB PO SCH ×2 (08:21→20:21)
[2017-01-22] MEDS: FLUCONAZOLE 200 MG TAB PO SCH (08:21)
[2017-01-22] MEDS: PSYLLIUM FIBER SF/GF 6 GM POWD PKT PO SCH (08:21)
[2017-01-22] MEDS: SODIUM CHLORIDE 0.9% FLUSH 10 ML FLUSH IV FLUSH SCH ×2 (08:22→20:21)
--- NOTE | 2017-01-22 08:40 | HHI.FPPN ---
Subjective Remarks Patient feeling well. Tolerating whole meals. Wants to get out of bed. Denies SOB. Pain well controlled. No fevers. (Johnie Segal MD R2) Objective Vitals Vital Signs Date Time Temp Pulse Resp B/P Pulse Ox O2 Delivery O2 Flow Rate FiO2 01/22/17 04:00 98.5 66 18 139/65 94 01/22/17 04:00 Room Air 01/22/17 00:00 Room Air 01/22/17 00:00 98.6 60 18 134/67 93 01/21/17 20:00 98.1 62 16 126/60 94 01/21/17 20:00 Room Air 01/21/17 20:00 56 01/21/17 16:00 98.3 57 18 142/65 97 01/21/17 12:00 97.9 59 18 125/58 98 01/21/17 08:50 95 21 I/O 01/21/17 01/21/17 01/21/17 01/22/17 01/22/17 01/22/17 07:00 15:00 23:00 07:00 15:00 23:00 Intake Total 120 ml 720 ml 1284 ml Output Total 600 ml 2325 ml 1450 ml 1455 ml Balance -480 ml -1605 ml -1450 ml -171 ml Intake Oral 120 ml 720 ml IV Total 1284 ml Output Urine Total 600 ml 2325 ml 1450 ml 1400 ml Drainage Total 55 ml # Bowel Movements 1 1 (Johnie Segal MD R2) Result Diagram: 01/22/17 0535 01/22/17 0535 Objective Remarks Gen.: No acute distress Head: Normocephalic. Atraumatic. EENT: Pupils equal round and reactive to light. Nose without drainage. Airway intact. Throat without injection. Cardiovascular: Regular rate and rhythm. No murmurs, rubs or gallops. Respiratory: Lungs clear to auscultation bilaterally. No wheezes or rhonchi. Abdomen: Soft, nontender, nondistended. No peritoneal signs. : Scrotum and penis in dressing; C/D/I. 3 JOSI drains draining res SS material. No extension of erythema. Suprapubic catheter in place with surrounding purulent drainage. Musculoskeletal: No gross deformities. No edema. Skin: No obvious rashes or erythema. Neuro: Sensory and motor grossly intact. Cranial nerves II through XII grossly intact. Psych: Appropriate mood and affect. (Johnie Segal MD R2) A/P Assessment and Plan Mr. Nolan is a 82-year-old male with a past medical history of coronary artery disease, prostate cancer status post resection in 2013, artificial urethral sphincter placement, urinary incontinence, and hypertension , presenting with increased scrotal swelling and redness x 2 weeks. Patient is status post removal of artificial sphincter, found to have no blood flow to right testicle. Is now status post right orchiectomy. Course complicated by ESBL cellulitis. 1. ESBL cellulitis of right scrotum - Infectious disease consulted, appreciate their recommendations - Patient currently on meropenem for ESBL cellulitis and UTI and Diflucan for Dinorah - Admitted for sepsis, currently resolved. Started on Vanc/Zosyn in ED. - Wound irrigation and debridement with washout on 01/20 2. Ischemic right testicle. - S/P right orchiectomy on 01/20 - JOSI drain [address], urology following appreciate their recommendations 3. Chronic medical conditions Hypertension: Continue home metoprolol Hyperlipidemia: Continue home statin 4. FEN Fluids: Tolerating PO, d/c fluids. Heart healthy diet Electrolytes: Replete when necessary DVT prophylaxis: Heparin 5000 units every 8 hours Discharge Planning Pending clinical improvement, clearance by urology and infectious disease recommendations. Patient is not currently ready for discharge. (Johnie Segal MD R2) Attending Attestation Patient seen and examined Case reviewed and discussed Agree with plan of care as discussed with me and documented in the resident note. (Toya Quan MD) Problem List: (1) ESBL (extended spectrum beta-lactamase) producing bacteria infection Status: Acute (2) Sepsis Status: Resolved (3) Swelling of scrotum Status: Acute (4) Hyperlipidemia Status: Chronic (5) Scrotal abscess Status: Acute (Johnie Segal MD R2) Johnie Segal MD R2 Jan 22, 2017 08:40 Toya Quan MD Jan 31, 2017 11:42
[2017-01-22 12:00] VITALS: BP 135/58; PULSE 61; RESP 18; TEMP 98.2; O2SAT 93
[2017-01-22] MEDS ORDERED: PHARMACY ORDERED LAB ONE (14:45)
[2017-01-22 16:00] VITALS: BP 139/66; PULSE 60; RESP 18; TEMP 98.1; O2SAT 95
--- NOTE | 2017-01-22 16:08 | HHI.IDPN ---
Note Infectious Disease Note Patient says he feels okay. Denies pain or chills. Afebrile. Status post Exploration, r. orchiectomy for ischemia of the r. testicle. Culture prior to surgery from suprapubic leakage and urethral around sanchez has E. coli ESBL. and elizabeth. The patient had placement of an artificial urethral sphincter which failed to work properly and therefore it was removed on January 03. He subsequently developed redness and swelling of the right testicle and he was also having leakage of urine from the scrotum. He was put on Bactrim after removal of the device. He developed increased swelling and therefore presented to the emergency department for evaluation. PAST MEDICAL HISTORY Hypertension, myocardial infarction in 2000, prostate cancer, DVT of the left leg and also groin. Coronary artery bypass graft surgery in 2002. Right knee replacement. Cardiac stents, TURP prostate surgery. ALLERGIES ALLOPURINOL. ANTIBIOTICS Ertapenem. Vancomycin. OBJECTIVE: Vital Signs Date Time Temp Pulse Resp B/P Pulse Ox O2 Delivery O2 Flow Rate FiO2 01/22/17 12:00 98.2 61 18 135/58 93 01/22/17 10:00 Room Air 21 01/22/17 08:00 98.1 64 16 131/70 94 01/22/17 04:00 98.5 66 18 139/65 94 01/22/17 04:00 Room Air 01/22/17 00:00 Room Air 01/22/17 00:00 98.6 60 18 134/67 93 01/21/17 20:00 98.1 62 16 126/60 94 01/21/17 20:00 Room Air 01/21/17 20:00 56 01/21/17 01/21/17 01/22/17 15:00 23:00 07:00 Intake Total 720 ml 1284 ml Output Total 2325 ml 1450 ml 1455 ml Balance -1605 ml -1450 ml -171 ml Intake Oral 720 ml IV Total 1284 ml Output Urine Total 2325 ml 1450 ml 1400 ml Drainage Total 55 ml # Bowel Movements 1 1 Laboratory Tests Test 01/21/17 01/22/17 06:39 05:35 White Blood Count 9.7 TH/MM3 7.5 TH/MM3 Red Blood Count 3.84 MIL/MM3 3.84 MIL/MM3 Hemoglobin 11.4 GM/DL 11.2 GM/DL Hematocrit 33.5 % 33.4 % Mean Corpuscular Volume 87.5 FL 86.9 FL Mean Corpuscular Hemoglobin 29.8 PG 29.3 PG Mean Corpuscular Hemoglobin 34.0 % 33.7 % Concent Red Cell Distribution Width 14.9 % 14.6 % Platelet Count 334 TH/MM3 321 TH/MM3 Mean Platelet Volume 6.8 FL 7.0 FL Neutrophils (%) (Auto) 70.1 % 60.8 % Lymphocytes (%) (Auto) 13.8 % 15.1 % Monocytes (%) (Auto) 14.3 % 14.7 % Eosinophils (%) (Auto) 1.4 % 9.0 % Basophils (%) (Auto) 0.4 % 0.4 % Neutrophils # (Auto) 6.8 TH/MM3 4.6 TH/MM3 Lymphocytes # (Auto) 1.3 TH/MM3 1.1 TH/MM3 Monocytes # (Auto) 1.4 TH/MM3 1.1 TH/MM3 Eosinophils # (Auto) 0.1 TH/MM3 0.7 TH/MM3 Basophils # (Auto) 0.0 TH/MM3 0.0 TH/MM3 CBC Comment DIFF FINAL DIFF FINAL Differential Comment Laboratory Tests Test 01/21/17 01/22/17 06:39 05:35 Sodium Level 134 MEQ/L 137 MEQ/L Potassium Level 4.2 MEQ/L 3.9 MEQ/L Chloride Level 100 MEQ/L 104 MEQ/L Carbon Dioxide Level 23.6 MEQ/L 24.9 MEQ/L Anion Gap 10 MEQ/L 8 MEQ/L Blood Urea Nitrogen 11 MG/DL 8 MG/DL Creatinine 0.87 MG/DL 0.67 MG/DL Estimat Glomerular Filtration 84 ML/MIN 114 ML/MIN Rate Random Glucose 101 MG/DL 98 MG/DL Calcium Level 8.2 MG/DL 8.3 MG/DL Microbiology Date/Time Procedure Status Source Growth 01/18/17 13:20 Urine Culture - Preliminary Resulted Urine Catheterized Urine Escherichia Coli Esbl Positive 01/18/17 15:50 Aerobic Blood Culture - Preliminary Resulted Blood Arterial Line NO GROWTH IN 2 DAYS 01/18/17 15:50 Anaerobic Blood Culture - Preliminary Resulted Blood Arterial Line NO GROWTH IN 2 DAYS 01/18/17 15:55 Aerobic Blood Culture - Preliminary Resulted Blood Arterial Line NO GROWTH IN 2 DAYS 01/18/17 15:55 Anaerobic Blood Culture - Preliminary Resulted Blood Arterial Line NO GROWTH IN 2 DAYS 01/19/17 10:30 Gram Stain - Final Resulted Wound Groin 01/19/17 10:30 Wound Culture - Preliminary Resulted Elizabeth Albicans 01/19/17 10:30 Gram Stain - Final Resulted Wound Scrotum 01/19/17 10:30 Wound Culture - Preliminary Resulted Gram Negative Abraham PHYSICAL EXAMINATION GENERAL: No acute distress. He is awake and alert and oriented. HEAD, EARS, NOSE AND THROAT: Extraocular movements grossly intact, pupils reactive to light. No icterus. Oropharynx moist mucosa. No visible lesions. NECK: Supple. No adenopathy. LUNGS: Clear to auscultation. HEART: Regular rate and rhythm. No murmurs, rubs or gallops. ABDOMEN: Bowel sounds present, soft, nontender. : The patient has drainage of serous fluid around the suprapubic catheter. Dressing and packing at the scrotum. 3 JOSI catheters has serous drainage. EXTREMITIES: No clubbing or cyanosis or edema. SKIN: No rash. NEUROLOGIC: No gross focal findings. IMPRESSION 1. Scrotal abscess and cellulitis. ESBL E. coli. 2. Failed outpatient antibiotic treatment with Bactrim. 3. Recent ureteral artificial sphincter removal for lack of proper function. RECOMMENDATIONS 1. Continue Meropenem. 2. Continue Diflucan. 3. Monitor clinical status. 4. Arrangement for IV ertapenem outpatient x 2 weeks on discharge. Jose Infante MD Jan 22, 2017 16:08
--- NOTE | 2017-01-22 17:05 | HHI.PR ---
Subjective Patient symptoms today POD#2 Scrotal exploration, right orchiectomy, wound debridement -No pain, feeling well. No fevers. Patient doing well at this time. Will leave drains in place until follow-up clinic visit later this week. Patient is clear for discharge from Urology standpoint Agree with ID recommendation regarding IV abx for 2 weeks Objective Vital Signs Vital Signs Date Time Temp Pulse Resp B/P Pulse Ox O2 Delivery O2 Flow Rate FiO2 01/22/17 12:00 98.2 61 18 135/58 93 01/22/17 10:00 Room Air 21 01/22/17 08:00 98.1 64 16 131/70 94 01/22/17 04:00 98.5 66 18 139/65 94 01/22/17 04:00 Room Air 01/22/17 00:00 Room Air 01/22/17 00:00 98.6 60 18 134/67 93 01/21/17 20:00 98.1 62 16 126/60 94 01/21/17 20:00 Room Air 01/21/17 20:00 56 Intake & Output 01/22/17 01/22/17 07:00 19:00 Intake Total 1284 ml Output Total 2905 ml Balance -1621 ml IV Total 1284 ml Output Urine Total 2850 ml Drainage Total 55 ml # Bowel Movements 1 Result Diagram: 01/22/17 0535 01/22/17 0535 Objective Remarks Scrotal incision partially open, no erythema or drainage noted. induration improved. Drains in place on JOSI suction Right groin incision healing well, JOSI drain suction Perineal incision healing well, no drainage SPT in place, clear yellow urine Medications and IVs Current Medications Medications (Trade) Dose Ordered Sig/Kena Route Start Time Stop Time Status Last Admin (Lipitor) 40 mg HS PO 01/18/17 21:00 01/21/17 20:51 (Zofran Inj) 4 mg Q6H PRN IVP 01/18/17 15:30 (Narcan Inj) 0.4 mg UNSCH PRN IV 01/18/17 15:30 (NS Flush) 2 ml UNSCH PRN IV FLUSH 01/18/17 15:30 01/18/17 23:15 (NS Flush) 2 ml BID IV FLUSH 01/18/17 21:00 01/22/17 08:22 (Metamucil Smooth Texture Sf/ Gf Pkt) 1 pkt DAILY PO 01/19/17 09:00 01/21/17 09:08 (Catapres) 0.1 mg Q6H PRN PO 01/18/17 19:30 Heparin Sodium (Porcine) 5000 units 5,000 units Q8HR SQ 01/19/17 15:15 01/22/17 13:05 Lactated Ringer's 1,000 ml @ 30 mls/hr Q24H PRN IV 01/20/17 06:00 01/23/17 05:59 (NS 500 ml Inj) 500 ml @ 30 mls/hr [id number] PRN IV 01/20/17 06:00 01/23/17 05:59 (Morphine Inj) 2 mg Q3H PRN IV PUSH 01/20/17 14:15 01/20/17 22:17 (Morphine Inj) 4 mg Q3H PRN IV PUSH 01/20/17 14:15 01/20/17 14:34 Morphine Sulfate 2 mg 2 mg Q3H PRN IV PUSH 01/20/17 14:15 (Merrem Inj/NS Inj) 100 ml @ 200 mls/hr Q8H IV 01/20/17 18:00 01/22/17 16:58 (Diflucan) 200 mg DAILY PO 01/20/17 17:30 01/22/17 08:21 (Toradol Inj) 60 mg Q6HR IV PUSH 01/21/17 12:00 01/26/17 11:59 01/22/17 16:59 (Rufina-Colace) 2 tab BID PO 01/21/17 21:00 (Ambien) 5 mg HS PRN PO 01/21/17 14:00 01/21/17 22:44 (Toprol Xl) 100 mg DAILY PO 01/22/17 09:00 01/22/17 08:20 Assessment and Plan Problem List: (1) Swelling of scrotum ICD Code: N50.89 Status: Acute Assessment and Plan -Continue local wound care with dressing changes -Drains to JOSI suction. Will not remove until clinic follow-up -Continue antibiotics per ID -Clear for discharge from Urology standpoint Kang Kamara MD Jan 22, 2017 17:05
[2017-01-22 20:00] VITALS: BP 136/65; PULSE 59; PULSE 61; RESP 18; TEMP 97.6; O2SAT 94
[2017-01-22] MEDS: ATORVASTATIN 40 MG TAB PO SCH (20:20)
[2017-01-22] MEDS: ZOLPIDEM TARTRATE 5 MG TAB PO PRN (22:23)
[2017-01-23] VITALS: BP 148/70; PULSE 65; RESP 16; TEMP 97.6; O2SAT 94
[2017-01-23] MEDS: MEROPENEM INJ 1,000 MG in SODIUM CHLORIDE 0.9% INJ 100 ML IV SCH ×2 (02:23→08:40)
[2017-01-23 04:00] VITALS: BP 138/68; PULSE 62; RESP 18; TEMP 97.7; O2SAT 93
[2017-01-23] MEDS: KETOROLAC TROMETHAMINE 30 MG/ML (IVP) VIAL IV PUSH SCH ×3 (06:00→11:12)
[2017-01-23] MEDS: HEPARIN SODIUM - SQ 10,000 UNITS/ML VIAL SQ SCH ×2 (06:08→13:15)
[2017-01-23 08:00] VITALS: BP 157/72; PULSE 61; RESP 20; TEMP 98; O2SAT 98
--- NOTE | 2017-01-23 08:35 | HHI.FPPN ---
Subjective Remarks Patient feeling much better today. Denies fevers or chills and pain is well controlled. No difficulty with ambulation, eating, urination, or BMs. (Johnie Segal MD R2) Objective Vitals Vital Signs Date Time Temp Pulse Resp B/P Pulse Ox O2 Delivery O2 Flow Rate FiO2 01/23/17 04:00 97.7 62 18 138/68 93 01/23/17 04:00 Room Air 01/23/17 00:00 Room Air 01/23/17 00:00 97.6 65 16 148/70 94 01/22/17 20:00 59 01/22/17 20:00 97.6 61 18 136/65 94 01/22/17 20:00 Room Air 01/22/17 16:00 98.1 60 18 139/66 95 01/22/17 12:00 98.2 61 18 135/58 93 01/22/17 10:00 Room Air 21 I/O 01/22/17 01/22/17 01/22/17 01/23/17 01/23/17 01/23/17 07:00 15:00 23:00 07:00 15:00 23:00 Intake Total 1284 ml 720 ml 120 ml Output Total 1455 ml 1975 ml 600 ml 400 ml Balance -171 ml -1255 ml -600 ml -280 ml Intake Oral 720 ml 120 ml IV Total 1284 ml Output Urine Total 1400 ml 1975 ml 600 ml 400 ml Drainage Total 55 ml # Bowel Movements 2 2 (Johnie Segal MD R2) Result Diagram: 01/22/17 0535 01/22/17 05 Objective Remarks Gen.: No acute distress Head: Normocephalic. Atraumatic. EENT: Pupils equal round and reactive to light. Nose without drainage. Airway intact. Throat without injection. Cardiovascular: Regular rate and rhythm. No murmurs, rubs or gallops. Respiratory: Lungs clear to auscultation bilaterally. No wheezes or rhonchi. Abdomen: Soft, nontender, nondistended. No peritoneal signs. : Scrotum and penis in dressing; C/D/I. 3 JOSI drains draining res SS material. No extension of erythema. Suprapubic catheter in place with surrounding purulent drainage. Musculoskeletal: No gross deformities. No edema. Skin: No obvious rashes or erythema. Neuro: Sensory and motor grossly intact. Cranial nerves II through XII grossly intact. Psych: Appropriate mood and affect. (Johnie Segal MD R2) A/P Assessment and Plan Mr. Nolan is a 82-year-old male with a past medical history of coronary artery disease, prostate cancer status post resection in 2013, artificial urethral sphincter placement, urinary incontinence, and hypertension , presenting with increased scrotal swelling and redness x 2 weeks. Patient is status post removal of artificial sphincter, found to have no blood flow to right testicle. Is now status post right orchiectomy. Course complicated by ESBL cellulitis. 1. ESBL cellulitis of right scrotum - Infectious disease consulted, appreciate their recommendations - Patient currently on meropenem for ESBL cellulitis and UTI and Diflucan for Dionrah -- Discharge home with 2 weeks of Ertepenem, as guided by ID. - Wound irrigation and debridement with washout on 01/20 2. Ischemic right testicle. - S/P right orchiectomy on 01/20 - JOSI drain [address], urology following appreciate their recommendations 3. Chronic medical conditions Hypertension: Continue home metoprolol Hyperlipidemia: Continue home statin 4. FEN Fluids: Tolerating PO, d/c fluids. Heart healthy diet Electrolytes: Replete when necessary DVT prophylaxis: Heparin 5000 units every [address] Quan Discharge Planning Pending clinical improvement, clearance by urology and infectious disease recommendations. Patient is not currently ready for discharge. (Johnie Segal MD R2) Attending Attestation Patient seen and examined Case reviewed and discussed Agree with plan of care as discussed with me and documented in the resident note. (Toay Quan MD) Problem List: (1) ESBL (extended spectrum beta-lactamase) producing bacteria infection Status: Acute (2) Sepsis Status: Resolved (3) Swelling of scrotum Status: Acute (4) Hyperlipidemia Status: Chronic (5) Scrotal abscess Status: Acute (Johnie Segal MD R2) Johnie Segal MD R2 Jan 23, 2017 08:35 Toya Quan MD Jan 31, 2017 11:42
[2017-01-23] MEDS: PSYLLIUM FIBER SF/GF 6 GM POWD PKT PO SCH (08:39)
[2017-01-23] MEDS: DOCUSATE SODIUM 50 MG/SENNA 8.6 MG TAB PO SCH (08:39)
[2017-01-23] MEDS: FLUCONAZOLE 200 MG TAB PO SCH (08:39)
[2017-01-23] MEDS: METOPROLOL SUCCINATE 50 MG EXTENDED RELEASE TAB PO SCH (08:39)
[2017-01-23] MEDS: SODIUM CHLORIDE 0.9% FLUSH 10 ML FLUSH IV FLUSH SCH (08:40)
[2017-01-23 10:26] LABS: AUTOMATED NEUTROPHIL # 4.1 TH/MM3 (1.8-7.7); BASOPHIL % 0.7 % (0.0-2.0); EOSINOPHIL # 0.6 TH/MM3 (0-0.4); EOSINOPHIL % 9.5 % (0.0-4.0); HEMATOCRIT 37.5 % (39.0-51.0); HEMO FLAGS DIFF FINAL; LYMPH % 16.6 % (9.0-44.0); LYMPHOCYTE # 1.1 TH/MM3 (1.0-4.8); MEAN CELL VOLUME 88.1 FL (80.0-100.0); MEAN CORPUSCULAR HEMOGLOBIN 28.4 PG (27.0-34.0); MEAN CORPUSCULAR HGB CONC 32.2 % (32.0-36.0); MONO % 11.5 % (0.0-8.0); NEUT % 61.7 % (16.0-70.0); PLATELET COUNT 344 TH/MM3 (150-450); RED BLOOD COUNT 4.25 MIL/MM3 (4.50-5.90); RED CELL DISTRIBUTION WIDTH 14.8 % (11.6-17.2); WHITE BLOOD COUNT 6.7 TH/MM3 (4.0-11.0)
[2017-01-23 10:33] LABS: PROTHROMBIN TIME - PATIENT 11.4 SEC (9.8-11.6)
[2017-01-23 10:53] LABS: BICARBONATE 22.7 MEQ/L (21.0-32.0); POTASSIUM 3.7 MEQ/L (3.5-5.1)
[2017-01-23] MEDS ORDERED: DIFL200T PO (11:27)
--- NOTE | 2017-01-23 11:29 | HHI.DCPOC ---
Discharge Care Plan Diagnosis: (1) Scrotal abscess (2) CAD (coronary artery disease) (3) Hyperlipidemia (4) ESBL (extended spectrum beta-lactamase) producing bacteria infection Goals to Promote Your Health * To prevent worsening of your condition and complications * To maintain your health at the optimal level Directions to Meet Your Goals Take your medications as prescribed Follow your dietary instruction Follow activity as directed Keep your appointments as scheduled Take your immunizations and boosters as scheduled If your symptoms worsen call your PCP, if no PCP go to Urgent Care Center or Emergency Room Smoking is Dangerous to Your Health. Avoid second hand smoke Call the 24-hour hour crisis hotline for domestic abuse at Johnie Segal MD R2 Jan 23, 2017 11:28
--- NOTE | 2017-01-23 11:30 | HHI.FF ---
Face to Face Verification Diagnosis: (1) ESBL (extended spectrum beta-lactamase) producing bacteria infection (2) Scrotal abscess (3) Sepsis Home Health Nursing Order: Medical education Signs/symptoms of disease process Wound care and dressing changes Nursing assessment with vital signs IV medication administration Torres catheter maintenance Home Health Aide Order: To Assist In: Bathing and personal care I have seen patient Sharon Cheng on 01/23/17. My clinical findings support the need for the requested home health care services because: Infection w/ risk of complications Injectable med education/admin I certify that my clinical findings support that this patient is homebound because: Post-op weakness Johnie Segal MD R2 Jan 23, 2017 11:30
--- NOTE | 2017-01-23 11:31 | HHI.FF ---
Infusion Therapy Location of Infusion Therapy: Home Health Care IV Infusion Order Patient Information Patient Weight 97.4 kg Diagnosis: (1) Scrotal abscess (2) ESBL (extended spectrum beta-lactamase) producing bacteria infection Coded Allergies: Allopurinol (Verified Allergy, Severe, 01/18/17) ruined small instetine and esophagus *MDRO Multi-Drug Resistant Organism (Verified Adverse Reaction, Unknown, ) ESBL E.Coli (urine)-01/18/17 Administer Medication Ertapenem 1 gram IV q 24 hours Stop Treatment: Feb 05, 2017 Additional Information Venous access: PICC Line Additional Instructions [x] Peripheral flush and dressing changes per protocol [x] Implanted port and central gasoline finisher: * Implanted port: 10 ml Normal Saline followed by 5 ml Heparin 100 units/ml Heparin flush after each use and monthly to maintain. [] May leave port accessed during therapy. [] May leave peripheral site accessed for duration of therapy. [x] If patient has SOB or respiratory distress, check oxygen saturation. If less than 90% or clinical signs of respiratory distress, administer oxygen at 2 L/min. via nasal cannula and notify physician. [x] Anaphylaxis/Reaction orders: * Stop infusion. * Keep IV line open with saline flush. * Notify physician. * Monitor vital signs every 15 minutes until symptoms resolve. * Check Oxygen saturation; Oxygen at 2 L/min. via nasal cannula if less than 90% or clinical signs of respiratory distress. * Administer diphenhydramine (Benadryl) 25 mg IV STAT, (unless patient has received as pre-med). May repeat once, if necessary. * Solu-Cortef 250 mg IVP over 30-60 seconds, use 100 mg vials for each dissolution. * Epinephrine (1mg/1 ml) 0.3 mg subcutaneously or IVP now with any signs of respiratory distress. * Check with physician for new additional pre-med orders if patient is re- challenged or re-treated. [x] May remove PICC line when treatment complete, after confirming with Physician. [x] If the patient is admitted to the hospital, the ED, or transferred via [facility] , complete transfer form including medication reconciliation order sheet. Laboratory Tests Weekly Labs: BMP, CBC w/diff (Follow up with ID outpatient Dr. Clement in 1 week. ), LFT's (Hepatic function test) Additional Information Follow up with ID physician DR. Clement in 1 week . Fax lab results to Dr. Infante [phone]. Jose Infante MD Jan 23, 2017 11:31
[2017-01-23 12:00] VITALS: BP 144/68; PULSE 63; RESP 20; TEMP 97.8; O2SAT 96
--- NOTE | 2017-01-23 12:14 | HHI.IDPN ---
Note Infectious Disease Note Patient says he feels okay. Some soreness at the groin. Afebrile. Status post Exploration, r. orchiectomy for ischemia of the r. testicle. Culture prior to surgery from suprapubic leakage and urethral around sanchez has E. coli ESBL. and elizabeth. The patient had placement of an artificial urethral sphincter which failed to work properly and therefore it was removed on January 03. He subsequently developed redness and swelling of the right testicle and he was also having leakage of urine from the scrotum. He was put on Bactrim after removal of the device. He developed increased swelling and therefore presented to the emergency department for evaluation. PAST MEDICAL HISTORY Hypertension, myocardial infarction in 2000, prostate cancer, DVT of the left leg and also groin. Coronary artery bypass graft surgery in 2002. Right knee replacement. Cardiac stents, TURP prostate surgery. ALLERGIES ALLOPURINOL. ANTIBIOTICS Meropenem. Diflucan. OBJECTIVE: Vital Signs Date Time Temp Pulse Resp B/P Pulse Ox O2 Delivery O2 Flow Rate FiO2 01/23/17 09:03 Room Air 21 01/23/17 08:00 98.0 61 20 157/72 98 01/23/17 04:00 97.7 62 18 138/68 93 01/23/17 04:00 Room Air 01/23/17 00:00 Room Air 01/23/17 00:00 97.6 65 16 148/70 94 01/22/17 20:00 59 01/22/17 20:00 97.6 61 18 136/65 94 01/22/17 20:00 Room Air 01/22/17 16:00 98.1 60 18 139/66 95 01/22/17 01/22/17 01/23/17 15:00 23:00 07:00 Intake Total 720 ml 120 ml Output Total 1975 ml 600 ml 400 ml Balance -1255 ml -600 ml -280 ml Intake Oral 720 ml 120 ml Output Urine Total 1975 ml 600 ml 400 ml # Bowel Movements 2 2 Laboratory Tests Test 01/22/17 01/23/17 05:35 09:30 White Blood Count 7.5 TH/MM3 6.7 TH/MM3 Red Blood Count 3.84 MIL/MM3 4.25 MIL/MM3 Hemoglobin 11.2 GM/DL 12.1 GM/DL Hematocrit 33.4 % 37.5 % Mean Corpuscular Volume 86.9 FL 88.1 FL Mean Corpuscular Hemoglobin 29.3 PG 28.4 PG Mean Corpuscular Hemoglobin 33.7 % 32.2 % Concent Red Cell Distribution Width 14.6 % 14.8 % Platelet Count 321 TH/MM3 344 TH/MM3 Mean Platelet Volume 7.0 FL 7.2 FL Neutrophils (%) (Auto) 60.8 % 61.7 % Lymphocytes (%) (Auto) 15.1 % 16.6 % Monocytes (%) (Auto) 14.7 % 11.5 % Eosinophils (%) (Auto) 9.0 % 9.5 % Basophils (%) (Auto) 0.4 % 0.7 % Neutrophils # (Auto) 4.6 TH/MM3 4.1 TH/MM3 Lymphocytes # (Auto) 1.1 TH/MM3 1.1 TH/MM3 Monocytes # (Auto) 1.1 TH/MM3 0.8 TH/MM3 Eosinophils # (Auto) 0.7 TH/MM3 0.6 TH/MM3 Basophils # (Auto) 0.0 TH/MM3 0.0 TH/MM3 CBC Comment DIFF FINAL DIFF FINAL Differential Comment Laboratory Tests Test 01/22/17 01/23/17 05:35 09:30 Sodium Level 137 MEQ/L 136 MEQ/L Potassium Level 3.9 MEQ/L 3.7 MEQ/L Chloride Level 104 MEQ/L 101 MEQ/L Carbon Dioxide Level 24.9 MEQ/L 22.7 MEQ/L Anion Gap 8 MEQ/L 12 MEQ/L Blood Urea Nitrogen 8 MG/DL 11 MG/DL Creatinine 0.67 MG/DL 0.72 MG/DL Estimat Glomerular Filtration 114 ML/MIN 105 ML/MIN Rate Random Glucose 98 MG/DL 105 MG/DL Calcium Level 8.3 MG/DL 8.7 MG/DL PHYSICAL EXAMINATION GENERAL: No acute distress. HEAD, EARS, NOSE AND THROAT: No icterus. Oropharynx moist mucosa. No visible lesions. NECK: Supple. No adenopathy. LUNGS: Clear to auscultation. HEART: Regular rate and rhythm. No murmurs, rubs or gallops. ABDOMEN: Bowel sounds present, soft, nontender. : No drainage or erythema around the suprapubic catheter. Dressing and packing at the scrotum. 3 JOSI catheters has serous drainage. EXTREMITIES: No clubbing or cyanosis or edema. SKIN: No rash. NEUROLOGIC: No gross focal findings. IMPRESSION 1. Scrotal abscess and cellulitis. ESBL E. coli. 2. Failed outpatient antibiotic treatment with Bactrim. 3. Recent ureteral artificial sphincter removal for lack of proper function. RECOMMENDATIONS 1. Change Meropenem t Ertapenem IV 1 gram daily x 2 weeks until February 05. 2. Continue Diflucan POP x 10 days. 3. Follow up with ID Dr Clement. Ordered. 4. Mid line for IV antibiotic. D/W Dr Segal. Autumn for discharge after antibiotic arrangements are made. Discussed with Patient and his . Jose Infante MD Jan 23, 2017 12:14
--- NOTE | 2017-01-23 14:32 | HHI.DS ---
Discharge Summary Admission Date Jan 18, 2017 at 15:06 Admitting Diagnosis (1) ESBL (extended spectrum beta-lactamase) producing bacteria infection (2) Sepsis (3) Swelling of scrotum (4) Hyperlipidemia (5) Scrotal abscess Brief History Mr. Cheng is a pleasant 82 y/o CM, presenting with increased scrotal swelling, redness and subjective fevers. He reports having a prostatectomy in 2013 for Prostate CA. Since this time having urinary retention and had recurrent prostate resection performed. A suprapubic catheter was placed in 2013 and is changed every month. In [address] Leyva, when AMS 800 (artificial sphincter) was placed. This worked for approximately 10 days, and then after that it was not working very well. He was still having urinary retention even with the device. On January 03, 2017 the device was removed. A week after this time his right testicle became red and swollen. On January 11 starting leaking urine from his scrotum. He is now having to wear depends underwear for leakage of urine for the past week. He reports subjective fevers last night. Has been taking Bactrim everyday since removal of the artificial sphincter. Today he went for a follow up visit with urology and they urged him to be evaluated in the ED given the increased redness swelling and possibility of abscess/hematoma. A Torres was placed at that visit. CBC/BMP: 01/23/17 0930 01/23/17 0930 Significant Findings Laboratory Tests Test 01/21/17 01/22/17 01/23/17 06:39 05:35 09:30 Red Blood Count 3.84 MIL/MM3 3.84 MIL/MM3 4.25 MIL/MM3 (4.50-5.90) (4.50-5.90) (4.50-5.90) Hemoglobin 11.4 GM/DL 11.2 GM/DL 12.1 GM/DL (13.0-17.0) (13.0-17.0) (13.0-17.0) Hematocrit 33.5 % 33.4 % 37.5 % (39.0-51.0) (39.0-51.0) (39.0-51.0) Mean Platelet Volume 6.8 FL (7.0-11.0) Neutrophils (%) (Auto) 70.1 % (16.0-70.0) Monocytes (%) (Auto) 14.3 % 14.7 % 11.5 % (0.0-8.0) (0.0-8.0) (0.0-8.0) Monocytes # (Auto) 1.4 TH/MM3 1.1 TH/MM3 (0-0.9) (0-0.9) Sodium Level 134 MEQ/L (136-145) Estimat Glomerular Filtration 84 ML/MIN (>89) Rate Calcium Level 8.2 MG/DL 8.3 MG/DL (8.5-10.1) (8.5-10.1) Eosinophils (%) (Auto) 9.0 % (0.0-4.0) 9.5 % (0.0-4.0) Eosinophils # (Auto) 0.7 TH/MM3 0.6 TH/MM3 (0-0.4) (0-0.4) PE at Discharge Gen.: No acute distress Head: Normocephalic. Atraumatic. EENT: Pupils equal round and reactive to light. Nose without drainage. Airway intact. Throat without injection. Cardiovascular: Regular rate and rhythm. No murmurs, rubs or gallops. Respiratory: Lungs clear to auscultation bilaterally. No wheezes or rhonchi. Abdomen: Soft, nontender, nondistended. No peritoneal signs. : Scrotum and penis in dressing; C/D/I. 3 JOSI drains draining res SS material. No extension of erythema. Suprapubic catheter in place with surrounding purulent drainage. Musculoskeletal: No gross deformities. No edema. Skin: No obvious rashes or erythema. Neuro: Sensory and motor grossly intact. Cranial nerves II through XII grossly intact. Psych: Appropriate mood and affect. Hospital Course Mr. Cheng is an 82-year-old male, with a past medical history of hyperlipidemia and prostate carcinoma who is status post TURP in 2013, and more recently had an artificial urethral valve placed in 2016, and has since been having complications. In early January 2017, the artificial valve was removed because of malfunctioning. Since that time, his right teste became red and swollen. He was admitted to [facility], for IV antibiotics, given failure on Bactrim outpatient therapy for a right scrotal abscess. An ultrasound while hospitalized showed no blood flow to his right testes, and he had gotten a orchiectomy on 01/20. Cultures from the surgery grew ESBL, Escherichia coli. He was treated with meropenem well in the hospital x 4 days. He improved clinically, his leukocytosis resolved, and he was not having fevers after antibiotic therapy. He was discharged home in stable condition, with follow-up with urology in 1-2 days, a PICC line, home health care, and IV antibiotics (Meropenem, x 2 weeks after discharge). Pt Condition on Discharge: Stable Discharge Disposition: Discharge Home Discharge Instructions DIET: Follow Instructions for: As Tolerated, No Restrictions Activities you can perform: Regular-No Restrictions New Medications: Fluconazole (Diflucan) 200 Mg Tab 200 MG PO DAILY #10 TAB Continued Medications: Atorvastatin (Lipitor) 40 Mg Tab 40 MG PO HS Cholesterol Management #30 Ref 0 TAB Metoprolol Succinate ER 24 HR (Metoprolol Succinate ER 24 HR) 100 Mg Tab 150 MG PO DAILY #30 Ref 0 TAB Omeprazole (Omeprazole) 20 Mg Tab 20 MG PO DAILY #30 Ref 0 TAB Zolpidem (Zolpidem) 5 Mg Tab 5 MG PO HS PRN INSOMNIA Ref 0 TAB Discontinued Medications: Sulfamethoxazole-Trimethoprim (Bactrim DS) 800-160 Mg Tab 1 TAB PO BID Infection #20 Ref 0 TAB Johnie Segal MD R2 Jan 23, 2017 14:32
== END 2017-01-23 18:43 | disposition home or self-care (01) | DRG 854 ==
LOC: NEPC 11:59 → NEDA 15:06 → N04A 17:10
PROVIDERS: ADMIT Family Medicine; ATTEND Family Medicine
PROC: 0TL Urinary System, Occlusion (ICD-10-PCS; 2017-01-20)
PROC: 0VT90ZZ Resection of Right Testis, Open Approach (ICD-10-PCS; principal; 2017-01-20 10:14)
PROC: 05H533Z Insertion of Infusion Device into Right Subclavian Vein, Percutaneous Approach (ICD-10-PCS; 2017-01-23)
PROC: B546ZZA Ultrasonography of Right Subclavian Vein, Guidance (ICD-10-PCS; 2017-01-23)
DX: A41.9 Sepsis, unspecified organism (principal); B37.49 Other urogenital candidiasis; Z93.50 Unspecified cystostomy status; B96.20 Unspecified Escherichia coli [E. coli] as the cause of diseases classified elsewhere; Z16.12 Extended spectrum beta lactamase (ESBL) resistance; N49.2 Inflammatory disorders of scrotum; N50.89 Other specified disorders of the male genital organs; Z90.79 Acquired absence of other genital organ(s); Z85.46 Personal history of malignant neoplasm of prostate; Z92.3 Personal history of irradiation; I10 Essential (primary) hypertension; E78.5 Hyperlipidemia, unspecified; I25.2 Old myocardial infarction; Z95.1 Presence of aortocoronary bypass graft; I25.10 Atherosclerotic heart disease of native coronary artery without angina pectoris; Z95.5 Presence of coronary angioplasty implant and graft; Z86.718 Personal history of other venous thrombosis and embolism; Z96.651 Presence of right artificial knee joint
CPT/HCPCS: 36569; 71010; 74177; 76870; 76937; 80048; 80053; 81001; 83605; 85025; 85610; 85730; 87040; 87070; 87077; 87086; 87186; 87205; 88305; 88307; 90715; 93005; 93975; 94150; J0131; J0690; J0692; J1580; J1644; J1885; J2185; J2270; J2405; J2543; J3010; J3370; J7030; J7040; J7120; Q9967

== ENCOUNTER 2017-07-22 07:16 | Day surgery (SDC) | payer MEDICARE ==
[~2017-07-22] VITALS: Ht 188 cm; Wt 93.2 kg
[~2017-07-22 07:16] MED LIST: DIFL200T PO; LIPI40TA PO; METO1TAB43 PO; OMEP20TA93 PO; ZOLP5TAB3 PO
[2017-07-22] MEDS ORDERED: IOHEXOL 350 MG/ML 50 ML BTL (for RAD DIAG) OTHER ONE (07:17)
[2017-07-22] MEDS ORDERED: IODIXANOL 320 MG/ML 50 ML VIAL (for RAD SPEC) OTHER ONE (07:17)
[2017-07-22] MEDS ORDERED: LACTCAP8 PO (07:42)
[2017-07-22] MEDS ORDERED: GLUC500T4 PO (07:43)
[2017-07-22] MEDS ORDERED: ASPI-183 PO (07:44)
[2017-07-22] MEDS ORDERED: SODIUM CHLORIDE 0.9% 1000 ML IV SCH (07:45)
[2017-07-22] MEDS ORDERED: LEVOFLOXACIN 500 MG PREMIX 100 ML - nephrostomy tube insertion or exchange IV SCH (07:45)
[2017-07-22 07:50] VITALS: BP 143/87; PULSE 63; RESP 20; TEMP 97.6; O2SAT 98
[2017-07-22 08:04] LABS: AUTOMATED NEUTROPHIL # 4.1 TH/MM3 (1.8-7.7); BASOPHIL % 0.6 % (0.0-2.0); EOSINOPHIL # 0.4 TH/MM3 (0-0.4); HEMATOCRIT 39.5 % (39.0-51.0); HEMO FLAGS DIFF FINAL; LYMPH % 26.5 % (9.0-44.0); LYMPHOCYTE # 2.1 TH/MM3 (1.0-4.8); MEAN CELL VOLUME 87.4 FL (80.0-100.0); MEAN CORPUSCULAR HEMOGLOBIN 29.7 PG (27.0-34.0); MONO % 15.7 % (0.0-8.0); NEUT % 52.2 % (16.0-70.0); PLATELET COUNT 249 TH/MM3 (150-450); RED BLOOD COUNT 4.53 MIL/MM3 (4.50-5.90); RED CELL DISTRIBUTION WIDTH 15.7 % (11.6-17.2); WHITE BLOOD COUNT 7.9 TH/MM3 (4.0-11.0)
[2017-07-22 08:19] LABS: POTASSIUM 3.8 MEQ/L (3.5-5.1)
[2017-07-22 08:23] LABS: APTT (PATIENT) 27.2 SEC (24.3-30.1); INTERNATIONAL NORMALIZED RATIO 1.1 RATIO; PROTHROMBIN TIME - PATIENT 10.8 SEC (9.8-11.6)
[2017-07-22] MEDS ORDERED: MIDAZOLAM HCL 2 MG/2 ML VIAL ONE ×2 (09:40→11:00)
--- NOTE | 2017-07-22 11:39 | PD.RAD ---
Post Procedure Progress Note Pre Procedure Diagnosis: (1) Continuous urine leakage Post Procedure Diagnosis: (1) Continuous urine leakage Procedure Date: Jul 22, 2017 Supervising Radiologist: Vicente Hopkins Estimated blood loss: 4cc Anesthesia: Local, Conscious Sedation Plan of Activity Patient to Unit: ROPU Patient Condition: Good Additional Comments: PT post bilateral Nephrostomy tube placement. catheters in good position. WILL HAVE PATIENT RETURN FOR UPSIZE TO 10 [place] IN 2 WEEKS Full dictated report to follow See PACS Report for procedural detail/treatment Vicente Hopkins MD Jul 22, 2017 11:39
[2017-07-22 11:40] VITALS: BP 137/84; PULSE 58; RESP 18; O2SAT 97
[2017-07-22 11:55] VITALS: BP 134/76; PULSE 54; RESP 16; O2SAT 98
[2017-07-22 12:25] VITALS: BP 133/75; PULSE 52; RESP 16; O2SAT 97
[2017-07-22 13:05] VITALS: BP 149/79; PULSE 52; RESP 16; O2SAT 97
[2017-07-22 13:35] VITALS: BP 156/95; PULSE 52; RESP 14; O2SAT 97
[2017-07-22] MEDS ORDERED: ACETAMINOPHEN 325 MG TAB PO ONE (14:00)
[2017-07-22] MEDS ORDERED: MORPHINE SULFATE 2 MG/ML INJ IV SCH (14:00)
--- NOTE | 2017-07-22 16:14 | RADRPT ---
EXAM DATE/TIME: 07/22/2017 09:15 [facility] COMPARISON: PERCUTANEOUS ANTEGRADE PYELO,LT, July 22, 2017, 0:00. INDICATIONS : Patient with history of urinary leakage in need of nephrostomy tube placement. MEDICAL HISTORY : HLD, DVT, Prostate cancer, Hematuria, CVA, Urinary incontinence SURGICAL HISTORY : Prostatectomy, Cystolithotomy, Cystoscopy, Suprapubic tube placement, Coronary artery bypass grafting , Prostate needle biopsy ENCOUNTER: Initial ACUITY: >1 year PAIN SCORE: 0/10 FLUORO TIME: 27.3 minutes IMAGE SERIES: 1 SEDATION TIME: 90 minutes CONTRAST: 40 cc Omnipaque (iohexol) 350 MEDICATION(S): 1.) 5 mg midazolam (Versed) IV 2.) 250 mcg fentanyl (Sublimaze) IV Prophylactic antibiotics were administered with appropriate pre-procedure timing. Vancomycin within 2 hours of procedure, Ancef (or alternative) within 1 hour of procedure. DEVICE(S): 1.) 8 [place] Irish 25CM Expel nephrostomy catheter PROCEDURE : 1. Ultrasound-guided puncture of the kidney. 2. Antegrade percutaneous pyelogram. 3. Percutaneous nephrostomy placement. 4. Conscious sedation with continuous EKG and oximetry monitoring. The risks, benefits and alternatives to the procedure were explained and verbal and written consent w as obtained. The site was prepped in sterile fashion. Full sterile technique was used, including ca p, mask, sterile gloves and gown and a large sterile sheet. Hand hygiene and 2% chlorhexidine and/or betadine/alcohol prep was utilized per protocol for cutaneous antisepsis. Sterile gel and sterile probe cover were utilized for ultrasound guidance. The skin and subcutaneous tissues were infiltrate d with local anesthetic solution. With ultrasound and fluoroscopic guidance the selected kidney was evaluated. The collecting system wa s nondilated. 50 cc of intravenous contrast was administered. The collecting system was punctured and a percutaneous antegrade pyelogram was performed demonstrating a normal appearing collecting system. Serial dilatation was performed and an 8 [place] Irish nephrostomy tube was placed within the renal pelvis and sutured in place. Conscious sedation was performed with the prescribed dosages and duration as above in the presence of an independent trained radiology nurse to assist in the monitoring of the patient. EKG and oximetry remained stable throughout the procedure. The patient tolerated the procedure well and there were n o complications. The patient was sent to post anesthesia recovery in stable condition. CONCLUSION: Uncomplicated nephrostomy tube placement as above. Vicente Hopkins MD on July 22, 2017 at 16:11 Board Certified Radiologist. This report was verified electronically.
--- NOTE | 2017-07-22 16:16 | RADRPT ---
EXAM DATE/TIME: 07/22/2017 09:15 [facility] COMPARISON: PERCUTANEOUS ANTEGRADE PYELO,LT, July 22, 2017, 0:00. INDICATIONS : Patient with history of urinary leakage in need of nephrostomy tube placement. MEDICAL HISTORY : HLD, DVT, Prostate cancer, Hematuria, CVA, Urinary incontinence SURGICAL HISTORY : Prostatectomy, Cystolithotomy, Cystoscopy, Suprapubic tube placement, Coronary artery bypass grafting , Prostate needle biopsy ENCOUNTER: Initial ACUITY: >1 year PAIN SCORE: 0/10 FLUORO TIME: 27.3 minutes IMAGE SERIES: 1 SEDATION TIME: 90 minutes CONTRAST: 40 cc Omnipaque (iohexol) 350 MEDICATION(S): 1.) 5 mg midazolam (Versed) IV 2.) 250 mcg fentanyl (Sublimaze) IV Prophylactic antibiotics were administered with appropriate pre-procedure timing. Vancomycin within 2 hours of procedure, Ancef (or alternative) within 1 hour of procedure. DEVICE(S): 1.) 8 Brazilian X25CM Expel nephrostomy catheter PROCEDURE : 1. Ultrasound-guided puncture of the kidney. 2. Antegrade percutaneous pyelogram. 3. Percutaneous nephrostomy placement. 4. Conscious sedation with continuous EKG and oximetry monitoring. The risks, benefits and alternatives to the procedure were explained and verbal and written consent w as obtained. The site was prepped in sterile fashion. Full sterile technique was used, including ca p, mask, sterile gloves and gown and a large sterile sheet. Hand hygiene and 2% chlorhexidine and/or betadine/alcohol prep was utilized per protocol for cutaneous antisepsis. Sterile gel and sterile probe cover were utilized for ultrasound guidance. The skin and subcutaneous tissues were infiltrate d with local anesthetic solution. With ultrasound and fluoroscopic guidance the selected kidney was evaluated. The collecting system wa s nondilated. Contrast administered for the nephrostomy on the left as such, the collecting system wa s visible. The collecting system was punctured and a percutaneous antegrade pyelogram was performed d emonstrating a nondilated collecting system with partial duplication. Serial dilatation was performed and an 8 Brazilian nephrostomy tube was placed within the renal pelvis and sutured in place. Conscious sedation was performed with the prescribed dosages and duration as above in the presence of an independent trained radiology nurse to assist in the monitoring of the patient. EKG and oximetry remained stable throughout the procedure. The patient tolerated the procedure well and there were n o complications. The patient was sent to post anesthesia recovery in stable condition. CONCLUSION: Successful nephrostomy tube placement. The patient's collecting system was nondilated. The patient manriquez s partial duplication of the collecting system. An 8 Brazilian nephrostomy tube was placed in the lower pole moiety. Vicente Hopkins MD on July 22, 2017 at 16:12 Board Certified Radiologist. This report was verified electronically.
== END 2017-07-22 15:15 | disposition home or self-care (01) ==
LOC: HROP 07:16 → HRIP 07:17 → HROP 15:15
DX: Z46.82 Encounter for fitting and adjustment of non-vascular catheter (principal); N39.45 Continuous leakage; E78.5 Hyperlipidemia, unspecified; Z85.46 Personal history of malignant neoplasm of prostate; Z86.73 Personal history of transient ischemic attack (TIA), and cerebral infarction without residual deficits; Z95.1 Presence of aortocoronary bypass graft
CPT/HCPCS: 50432; 80048; 85025; 85610; 85730; 99152; 99153; C1729; C1769; J1956; J2250; J3010; J7030; Q9967

== ENCOUNTER 2017-07-25 14:20 | Day surgery (SDC) | payer MEDICARE ==
[~2017-07-25] VITALS: Ht 185.4 cm; Wt 93.6 kg
[~2017-07-25 14:20] MED LIST changes: +ASPI-183 PO; -DIFL200T PO; +GLUC500T4 PO; +LACTCAP8 PO
[2017-07-25] MEDS ORDERED: IOHEXOL 350 MG/ML 50 ML BTL (for RAD DIAG) OTHER ONE (14:21)
[2017-07-25 15:00] VITALS: BP 159/78; PULSE 62; RESP 18; TEMP 97; O2SAT 95
[2017-07-25] MEDS ORDERED: LEVOFLOXACIN 500 MG PREMIX INJ 100 ML IV ONE (15:30)
[2017-07-25] MEDS ORDERED: MIDAZOLAM HCL 2 MG/2 ML VIAL ONE (15:30)
[2017-07-25] MEDS ORDERED: LORazepam 2 MG/ML VIAL ONE (15:57)
--- NOTE | 2017-07-25 17:03 | PD.RAD ---
Post Procedure Progress Note Pre Procedure Diagnosis: (1) Continuous urine leakage Post Procedure Diagnosis: (1) Continuous urine leakage Procedure Date: Jul 25, 2017 Supervising Radiologist: Vicente Hopkins Estimated blood loss: 3cc Anesthesia: Local, Conscious Sedation Plan of Activity Patient to Unit: ROPU Patient Condition: Fair Additional Comments: Right nephrostomy tube had pulled out of the kidney. New 10 F. tube placed on the right. Left nephrostomy tube upsized to 10F without difficulty. Full dictated report to follow. See PACS Report for procedural detail/treatment Vicente Hopkins MD Jul 25, 2017 17:03
[2017-07-25 20:45] VITALS: BP 153/74; PULSE 66; RESP 18; TEMP 98.1; O2SAT 97
--- NOTE | 2017-07-26 11:18 | RADRPT ---
EXAM DATE/TIME: 07/25/2017 15:42 [facility] COMPARISON: ANTEGRADE PYELOGRAM, LEFT, July 25, 2017, 0:00. INDICATIONS : Patient with a history of urinary leakage, nephrostomy tube fell out, needs a new one. MEDICAL HISTORY : HLD, DVT, Prostate cancer, Hematuria, CVA, Urinary incontinence SURGICAL HISTORY : Prostatectomy, Cystolithotomy, Cystoscopy, Suprapubic tube placement, Coronary artery bypass grafting , Prostate needle biopsy ENCOUNTER: Subsequent ACUITY: >1 year PAIN SCORE: 0/10 FLUORO TIME: 20.5 minutes IMAGE SERIES: 4 CONTRAST: 100 cc Omnipaque (iohexol) 350 MEDICATION(S): 1.) 1 mg lorazepam (Ativan) IV 2.) 150 mcg fentanyl (Sublimaze) IV DEVICE(S): 1.) 10 [place] Expel PROCEDURE : 1. Ultrasound-guided puncture of the kidney. 2. Antegrade percutaneous pyelogram. 3. Percutaneous nephrostomy placement. 4. Conscious sedation with continuous EKG and oximetry monitoring. The patient undergone percutaneous nephrostomy for urinary leak into the peritoneum approximately 24 hours prior. The tube became trapped body with sleeping. The tube was dislodged from the kidney. The risks, benefits and alternatives to the procedure were explained and verbal and written consent w as obtained. The site was prepped in sterile fashion. Full sterile technique was used, including ca p, mask, sterile gloves and gown and a large sterile sheet. Hand hygiene and 2% chlorhexidine and/or betadine/alcohol prep was utilized per protocol for cutaneous antisepsis. The existing tube was accessed. A small injection of contrast was performed. The tube was clearly pal pable of the renal cortex and within the subcutaneous tissues. Sterile gel and sterile probe cover were utilized for ultrasound guidance. The skin and subcutaneous tissues were infiltrated with local anesthetic solution. 50 cc of contrast was administered intravenously. With fluoroscopic guidance the selected kidney was punctured and a percutaneous antegrade pyelogram was performed. There was free drainage of contrast f rom the collecting system down to the bladder which was expected. The collecting system was filled wi th contrast. Temporal made to pass air into the collecting system to highlight a posterior calyx limon dmitriy, this merely decompressed through the existing tract. A suitable site was localized. A 22 gauge needle was advanced through the skin of the back and down t o a calyx. A 0.018 wire was advanced through the needle. This was exchanged for a 0.035 wire. Serial dilatation was performed and a 10 Cuban nephrostomy tube was placed within the renal pelvis and sutu red in place. Conscious sedation was performed with the prescribed dosages and duration as above in the presence of an independent trained radiology nurse to assist in the monitoring of the patient. EKG and oximetry remained stable throughout the procedure. The patient tolerated the procedure well and there were n o complications. The patient was sent to post anesthesia recovery in stable condition. CONCLUSION: Uncomplicated nephrostomy tube placement as above. Vicente Hopkins MD on July 26, 2017 at 11:02 Board Certified Radiologist. This report was verified electronically.
--- NOTE | 2017-07-26 11:20 | RADRPT ---
EXAM DATE/TIME: 07/25/2017 15:42 [facility] COMPARISON: ANTEGRADE PYELOGRAM, RIGHT, July 25, 2017, 0:00. INDICATIONS : Patient with a history of urinary leakage. MEDICAL HISTORY : HLD, DVT, Prostate cancer, Hematuria, CVA, Urinary incontinence SURGICAL HISTORY : Prostatectomy, Cystolithotomy, Cystoscopy, Suprapubic tube placement, Coronary artery bypass grafting , Prostate needle biopsy ENCOUNTER: Subsequent ACUITY: 4 - 6 days PAIN SCORE: 0/10 FLUORO TIME: 20.5 minutes IMAGE SERIES: 3 CONTRAST: 100 cc Omnipaque (iohexol) 350 MEDICATION(S): 1.) 1 mg lorazepam (Ativan) IV 2.) 150 mcg fentanyl (Sublimaze) IV DEVICE(S): 1.) 10 Prydein[place] Expel nephrostomy PROCEDURE : 1. Antegrade pyelogram. 2. Nephrostomy tube exchange. 3. Conscious sedation with continuous EKG and oximetry monitoring. The risks, benefits and alternatives to the procedure were explained and verbal and written consent w as obtained. The site was prepped in sterile fashion. Full sterile technique was used, including ca p, mask, sterile gloves and gown and a large sterile sheet. Hand hygiene and 2% chlorhexidine and/or betadine/alcohol prep was utilized per protocol for cutaneous antisepsis. The skin and subcutaneous tissues were infiltrated with local anesthetic solution. With fluoroscopic guidance antegrade pyelo gram was performed. The 8 Pryde[place] nephrostomy tube was removed over a 0.035 angle Glidewire. This was exchanged for a new 10 Pry[place] tube. Due to the small size of the collecting system. The tube could only be partially form ed. Injection of positive contrast demonstrates good position of the catheter within the collecting s ystem. Conscious sedation was performed with the prescribed dosages and duration as above in the presence of an independent trained radiology nurse to assist in the monitoring of the patient. EKG and oximetry remained stable throughout the procedure. The patient tolerated the procedure well and there were n o complications. The patient was sent to post anesthesia recovery in stable condition. CONCLUSION: Uncomplicated nephrostomy tube exchange as above. Vicente Hopkins MD on July 26, 2017 at 11:16 Board Certified Radiologist. This report was verified electronically.
== END 2017-07-25 17:20 | disposition home or self-care (01) ==
LOC: HROP 14:20 → HRIP 14:25 → HROP 17:20
PROVIDERS: ATTEND Radiology Body Imaging
DX: Z46.82 Encounter for fitting and adjustment of non-vascular catheter (principal); N39.45 Continuous leakage; E78.5 Hyperlipidemia, unspecified; Z85.46 Personal history of malignant neoplasm of prostate; Z95.1 Presence of aortocoronary bypass graft; Z86.73 Personal history of transient ischemic attack (TIA), and cerebral infarction without residual deficits
CPT/HCPCS: 50432; 50435; C1729; C1769; J1956; J2060; J2250; J3010; Q9967

== ENCOUNTER 2017-12-16 11:46 | Day surgery (SDC) | payer MEDICARE ==
[2017-12-16] MEDS ORDERED: MIDAZOLAM HCL 5 MG/5 ML VIAL ONE (12:37)
[2017-12-16] MEDS ORDERED: NS 1000 ML IV SCH (12:45)
[2017-12-16] MEDS ORDERED: CHLORHEXIDINE GLUCONATE 2 % 1 PACK (2 CLOTHS) TOPICAL SCH (12:45)
[2017-12-16] MEDS ORDERED: MUPIROCIN 2% OINT 1 APPLIC/GM SYR NASAL SCH (12:45)
[2017-12-16] MEDS ORDERED: POVIDONE IODINE 5% (ANTISEPSIS KIT) 4 APPLICATIONS EACH NARE SCH (12:45)
[2017-12-16] MEDS ORDERED: ceFAZolin 2 GM PREMIX 50 ML IV SCH (12:45)
--- NOTE | 2017-12-16 13:56 | MR ---
cc: Luis Delarosa MD DATE: 12/16/2017 INDICATIONS FOR PROCEDURE: 1. Cerebrovascular accident, evaluation for atrial fibrillation. 2. Moderate sedation. PROCEDURE PERFORMED: Placement of Medtronic Reveal LINQ MRI compatible, loop monitor. ACCESS SITE: Left subclavicular area. EQUIPMENT USED: Medtronic Reveal LINQ, model LNQ11 MRI compatible with monitor, serial number [id number]. PROCEDURE: The left upper chest was prepped and draped in usual sterile manner. Local anesthesia was applied. Medtronic Reveal LINQ MRI compatible, loop monitor was placed without difficulties. R-wave was 0.75 millivolts. The patient remained stable and discharged home in stable condition. DIAGNOSIS: Successful placement of Medtronic Reveal LINQ MRI compatible, loop monitor. DISPOSITION: Mr. Cheng will continue his current medical program. We will initiate long-term monitoring of his device. I will see him back for followup in our office after discharge. Luis Delarosa MD OQ/TL , 01:42 PM , 01:55 PM
== END 2017-12-16 14:50 | disposition home or self-care (01) ==
LOC: HDIC 11:46 → HDOC 11:46
PROVIDERS: ATTEND Internal Medicine Interventional Cardiology
DX: I48.91 Unspecified atrial fibrillation (principal); I63.9 Cerebral infarction, unspecified; I10 Essential (primary) hypertension
CPT/HCPCS: 33282; 99152; C1764; J2250; J3010